=== PATIENT | male | born 1935 | race Asian ===

== ENCOUNTER 2018-07-31 08:15 | Inpatient (IN) | payer MEDICARE, OTHER ==
[~2018-07-31] VITALS: Ht 180.3 cm; Wt 59.4 kg
[~2018-07-31 08:15] MED LIST: CARB1TAB8 PO; CIPR500T9 PO; FINA5TAB5 PO
[2018-07-31 08:26] VITALS: BP 97/57
--- NOTE | 2018-07-31 08:32 | NUR ---
pt taken in wheelchair to er bed 06
--- NOTE | 2018-07-31 08:47 | NUR ---
C/O SWOLLEN SCROTUM X 10 DAYS, SAW PCP LAST HAN WAS PRESCRIBED CIPRO. SWELLING HAS WORSENED. PAIN DESCRIBED MILD. PT SPEAKS CANTONESE, SON IS WITH PATIENT. FEVER 10 DAYS AGO AT HOME. HX: PARKINSONS, CONSTIPATION, ECZEMA RX: COLACE, HYDROCORTISONE, LACTULOSE, COMPAZINE, EYE DROPS
[2018-07-31] MEDS ORDERED: NACL 0.9% 1,000 ML IV SCH (09:10)
[2018-07-31] MEDS ORDERED: KETOROLAC 15 MG/ML VIAL IVP ONE (09:20)
[2018-07-31] MEDS ORDERED: metroNIDAZOLE 500 MG/NS PREMIX 100 ML IV ONE ×2 (09:20→12:35)
[2018-07-31] MEDS ORDERED: VANCOMYCIN PER PHARMACY MC PRN ×2 (09:20→12:35)
[2018-07-31] MEDS ORDERED: VANCOMYCIN 1GM/DEXT 5% PREMIX 200 ML IV ONE (09:20)
--- NOTE | 2018-07-31 09:30 | NUR ---
ATTEMPTED KUHN CATH PLACEMENT. UNABLE TO ADVANCE OR INFLATE BALOON. MILD BLEEDING NOTED. WITH SPEAK WITH DOCTOR ON HOW HE WOULD LIKE TO PROCEED.
--- NOTE | 2018-07-31 09:45 | NUR ---
DR GUPTA STATED TO HOLD KUHN PLACEMENT AT THIS TIME.
[2018-07-31 09:46] LABS: BASOPHILS % (AUTO) 0.5 % (0.0-2.0); EOSINOPHILS # (AUTO) 0.1 K/uL (0-0.4); EOSINOPHILS % (AUTO) 0.6 % (0.0-4.0); HEMATOCRIT 29.4 % (36-52); HEMOGLOBIN 9.5 g/dL (12.0-18.0); LYMPHOCYTES # (AUTO) 0.5 K/uL (2.0-11.5); LYMPHOCYTES % (AUTO) 5.9 % (20.5-51.1); MEAN CORPUSCULAR HEMOGLOBIN 27 pg (27-31); MEAN CORPUSCULAR HGB CONC 32 g/dL (33-37); MEAN CORPUSCULAR VOLUME 82.1 fL (80-94); MONOCYTES # (AUTO) 1.3 K/uL (0.8-1.0); MONOCYTES % (AUTO) 14.5 % (1.7-9.3); NEUTROPHILS # (AUTO) 7.1 K/uL (1.8-7.7); NEUTROPHILS % (AUTO) 78.5 % (42.2-75.2); PLATELET COUNT (AUTO) 226 K/uL (140-450); RED BLOOD CELL COUNT(AUTO) 3.59 MIL/uL (4.20-6.10); RED CELL DISTRIBUTION WIDTH 15.1 % (11.6-13.7)
--- NOTE | 2018-07-31 09:47 | NUR ---
Note undone in EDM - 07/31/18 at 1031 by YESIKA C/O SWOLLEN SCROTUM X 10 DAYS, SAW PCP LAST TUESDAY WAS PRESCRIBED CIPRO. SWELLING HAS WORSENED. PAIN DESCRIBED MILD. PT SPEAKS CANTONESE, SON IS WITH PATIENT. FEVER 10 DAYS AGO AT HOME. HX: PARKINSONS, CONSTIPATION, ECZEMA RX: COLACE, HYDROCORTISONE, LACTULOSE, COMPAZINE, EYE DROPS
[2018-07-31 10:04] LABS: ALBUMIN 2.4 g/dL (3.4-5.0); ANION GAP 6.5 (8-16); ASPARTATE AMINOTRANSFERASE 23 U/L (15-37); CARBON DIOXIDE 29.4 mmol/L (21-32); CHLORIDE 99 mmol/L (98-107); CREATININE 1.1 mg/dL (0.7-1.3); GLUCOSE 125 mg/dL (74-106); POTASSIUM 3.9 mmol/L (3.5-5.1); SODIUM SERUM 131 mmol/L (136-145); TOTAL BILIRUBIN 0.4 mg/dL (0.0-1.0); UREA NITROGEN, BLOOD 18 mg/dL (7-18)
[2018-07-31 10:08] LABS: PROTHROMBIN TIME 12.6 secs (10.8-13.4)
[2018-07-31] MEDS ORDERED: VANCOMYCIN 1,000 MG in DEXTROSE 5% 250 ML IV ONE (10:55)
[2018-07-31] MEDS ORDERED: VANCOMYCIN 1,000 MG VIAL ONE (11:35)
[2018-07-31] MEDS ORDERED: MORPHINE SULFATE 2 MG/ML SYR IVP PRN (12:30)
[2018-07-31] MEDS ORDERED: ONDANSETRON 4 MG/2 ML VIAL IM/IVP PRN (12:30)
[2018-07-31] MEDS ORDERED: DOCUSATE SODIUM 100 MG GELCAP PO PRN (12:30)
[2018-07-31] MEDS ORDERED: HYDROcodone/APAP 5/325 MG 1 TAB TAB PO PRN (12:30)
[2018-07-31] MEDS ORDERED: TAMSULOSIN 0.4 MG CAP PO SCH (13:54)
--- NOTE | 2018-07-31 13:55 | NUR ---
PATIENT ADMITTED TO [facility], UNDER CARE OF DR POON. REPORT GIVEN TO RN FOR CONTINUATION OF CARE. PATIENT STABLE DURING TRANSFER.
[2018-07-31 14:15] LABS: FREE T4 (FREE THYROXINE) 1.31 ng/dL (0.76-1.46); MAGNESIUM 2.1 mg/dL (1.8-2.4); PHOSPHORUS 3.8 mg/dL (2.5-4.9); THYROID STIMULATING HORMONE 2.31 uIU/mL (0.34-3.74)
--- NOTE | 2018-07-31 14:30 | NUR ---
DR. VALERA AT BEDSIDE REVIEWING PLAN OF CARE WITH PATIENT/SON AT BEDSIDE. BLADDER SCANNED PERFORMED, 380 ML RESIDUAL NOTED. BED SWALLOW EVALUATION PERFORMED. ABLE TO SWALLOW APPLE SAUCE, NORMAL WATER WITH SPOON ONLY, AND ICE CHIPS WHOLE ONLY WHEN HIGH HARPER'S POSITION. SON SAID PATIENT TOLERATED PUREED DIET AT HOME AND IS ABLE TO SWALLOW WHOLE PILLS WITHOUT CRUSHING. NOTIFIED DR. VALERA. SAFETY MEASURES IN PLACE, CALL LIGHT WITHIN REACH. WILL CONTINUE TO MONITOR.
[2018-07-31] MEDS ORDERED: GLYCOPYRROLATE 1 MG TAB PO PRN (14:50)
[2018-07-31] MEDS ORDERED: FINASTERIDE 5 MG TAB PO SCH (14:50)
[2018-07-31] MEDS ORDERED: traZODone 50 MG TAB PO PRN (14:50)
[2018-07-31] MEDS ORDERED: COMPOSITE DRESSING TP PRN (15:05)
[2018-07-31] MEDS ORDERED: LACTULOSE 20 GM/30 ML UDC PO SCH (15:05)
[2018-07-31] MEDS ORDERED: Z-GUARD PASTE TP PRN (15:05)
[2018-07-31] MEDS: NACL 0.9% 1,000 ML IV SCH (15:13)
--- NOTE | 2018-07-31 15:16 | NUR ---
SCHEDULED MEDICATIONS DUE GIVEN VIA PO. IVF STARTED PER MD ORDERS. WILL CONTINUE TO MONITOR.
[2018-07-31] MEDS ORDERED: PANTOPRAZOLE 40 MG INJ VIAL IVP SCH (16:00)
[2018-07-31] MEDS ORDERED: COMPOSITE DRESSING TP SCH (16:30)
[2018-07-31] MEDS: Z-GUARD PASTE TP SCH (16:30)
[2018-07-31] MEDS: GABAPENTIN 300 MG CAP PO SCH (17:00)
[2018-07-31] MEDS: CARBIDOPA/LEVODOPA 25/100 MG 1 TAB PO SCH (17:00)
--- NOTE | 2018-07-31 19:41 | NUR ---
RECEIVED PATIENT FROM AM BERNARD BRITT. PATIENT A/Ox2, UNABLE TO MAKE NEEDS KNOWN. NO SOB OR DISTRESS NOTED. PATIENT ON REGULAR PUREED DIET, CAN EITHER SWALLOW PILLS WHOLE OR CRUSHED. ORIENTED SELF TO PATIENT, BOARD UPDATED. IV SITE NOTED ON LEFT FOREARM, INTACT AND NO S/SX OF SWELLING, REDNESS, INFECTION NOTED. SKIN NON-INTACT, PATIENT NOTED WITH PRESSURE SORE ON SACRAL-COCCYX AREA. CONDOM CATH IN PLACE. INITIAL ASSESSMENT DONE, ALL SAFETY PRECAUTIONS IN PLACE. BED IN THE LOWEST POSITION. CALL LIGHT WITHIN REACH. WILL CONTINUE TO MONITOR.
--- NOTE | 2018-07-31 20:10 | NUR ---
TOOK PATIENT VITALS, BP TRENDING LOW, 104/41. WILL CONTINUE TO MONITOR. NO SOB OR DISTRESS NOTED.
[2018-07-31] MEDS: metroNIDAZOLE 500 MG/NS PREMIX 100 ML IV SCH (21:30)
[2018-08-01] VITALS (7 sets, daily range): BP systolic 78–107; BP diastolic 39–56
--- NOTE | 2018-08-01 00:08 | NUR ---
PATIENTS BP TRENDING LOW, BP 102/38. MADE DR. TORIBIO AWARE, NO NEW ORDERS. WILL CONTINUE TO MONITOR.
[2018-08-01] MEDS: Z-GUARD PASTE TP SCH ×2 (02:24→13:00)
--- NOTE | 2018-08-01 04:41 | NUR ---
RADIOLOGY TOOK PATIENT OUT OF THE UNIT FOR CT SCAN ABDOMEN/PELVIS WITH CONTRAST.
--- NOTE | 2018-08-01 05:10 | NUR ---
PATIENT RETURNED FROM CT SCAN, NOTICED A 2CM TEAR ON LEFT UPPER FOREHEAD. PICTURE TAKEN.
[2018-08-01] MEDS: NACL 0.9% 1,000 ML IV SCH ×2 (05:45→18:00)
[2018-08-01] MEDS: metroNIDAZOLE 500 MG/NS PREMIX 100 ML IV SCH ×3 (05:46→20:13)
[2018-08-01] MEDS ORDERED: NACL 0.9% 500 ML IV SCH ×3 (06:45→13:07)
--- NOTE | 2018-08-01 06:45 | NUR ---
DR. VALERA WENT TO ASSESS THE PATIENT. PATIENT NOTED WITH TRENDING LOW BP, MAP 50'S TO 60'S. DR. VALERA ORDERED 500mL BOLUS, NS INCREASED TO 80mL/HR.
[2018-08-01 07:00] LABS: BASOPHILS % (AUTO) 0.2 % (0.0-2.0); EOSINOPHILS % (AUTO) 0.2 % (0.0-4.0); HEMATOCRIT 27.3 % (36-52); HEMOGLOBIN 8.8 g/dL (12.0-18.0); LYMPHOCYTES # (AUTO) 0.4 K/uL (2.0-11.5); LYMPHOCYTES % (AUTO) 4.6 % (20.5-51.1); MEAN CORPUSCULAR HEMOGLOBIN 27 pg (27-31); MEAN CORPUSCULAR HGB CONC 32 g/dL (33-37); MEAN CORPUSCULAR VOLUME 82.4 fL (80-94); MONOCYTES # (AUTO) 0.9 K/uL (0.8-1.0); MONOCYTES % (AUTO) 10.8 % (1.7-9.3); NEUTROPHILS # (AUTO) 6.8 K/uL (1.8-7.7); NEUTROPHILS % (AUTO) 84.2 % (42.2-75.2); PLATELET COUNT (AUTO) 193 K/uL (140-450); RED BLOOD CELL COUNT(AUTO) 3.31 MIL/uL (4.20-6.10); RED CELL DISTRIBUTION WIDTH 15.5 % (11.6-13.7)
[2018-08-01 07:21] LABS: ANION GAP 8.8 (8-16); CARBON DIOXIDE 26.2 mmol/L (21-32); CHLORIDE 103 mmol/L (98-107); CREATININE 1.3 mg/dL (0.7-1.3); GLUCOSE 101 mg/dL (74-106); SODIUM SERUM 134 mmol/L (136-145); UREA NITROGEN, BLOOD 21 mg/dL (7-18)
[2018-08-01 07:27] LABS: MAGNESIUM 2.1 mg/dL (1.8-2.4)
[2018-08-01 07:28] LABS: CHOL/HDL RATIO 2.9 (1-4.5)
--- NOTE | 2018-08-01 07:30 | NUR ---
ENDORSED PATIENT TO AM RN. MADE AWARE BP TRENDING LOW, OCCULT BLOOD AND URINE SAMPLE DUE.
--- NOTE | 2018-08-01 07:32 | NUR ---
RECEIVED BEDSIDE REPORT FROM IMPROVEMENT ADVISOR NURSE. PT AOX2, ABLE TO MAKE NEED NOTED. BEDBOUND. COUGH A FEW TIMES. 2CM CUT NOTED ON FOREHEAD, APPLIED BANDAGE. IV ON L FA, INFUSING NS 500ML/ HR PER MD ORDER. IV SITE DRY AND CLEAN. SCROTAL IS RED, SWELLING, AND APPLIED CONDOM CATHETER PER MD ORDER, DRAIN WELL AND PATENT. DISCUSSED PLAN OF CARE WITH PATIENT, PATIENT VERBALIZED UNDERSTANDING. INSTRUCTED PATIENT ON USING THE CALL LIGHT FOR ANY ASSISTANCE. SAFETY MEASURES IN PLACE. BED IN LOW POSITION, CALL LIGHT WITHIN REACH.
--- NOTE | 2018-08-01 07:57 | NUR ---
PATIENT HAS BEEN SCREENED AND CATEGORIZED HIGH NUTRITION RISK. PATIENT WILL BE SEEN WITHIN 1-2 DAYS OF ADMISSION. 08/01/18-08/02/[address]
--- NOTE | 2018-08-01 08:33 | NUR ---
HANG 500ML/HR NS BOLUS PER MD ORDER.
[2018-08-01] MEDS ORDERED: LACTULOSE 20 GM/30 ML UDC PO SCH (09:00)
[2018-08-01] MEDS ORDERED: FAMOTIDINE 20 MG TAB PO SCH (09:00)
[2018-08-01] MEDS: LACTOBACILLUS RHAMNOSUS GG 1 EACH CAP PO SCH (09:08)
[2018-08-01] MEDS: PANTOPRAZOLE 40 MG INJ VIAL IVP SCH (09:08)
[2018-08-01] MEDS: GABAPENTIN 300 MG CAP PO SCH ×3 (09:09→17:14)
[2018-08-01] MEDS: FINASTERIDE 5 MG TAB PO SCH (09:09)
[2018-08-01] MEDS: CARBIDOPA/LEVODOPA 25/100 MG 1 TAB PO SCH ×3 (09:10→17:15)
[2018-08-01] MEDS: TAMSULOSIN 0.4 MG CAP PO SCH (09:10)
[2018-08-01] MEDS ORDERED: SODIUM PHOSPHATE 118 ML ENEM RC PRN (09:25)
[2018-08-01] MEDS ORDERED: MINERAL OIL 135 ML ENEM RC SCH (09:27)
--- NOTE | 2018-08-01 09:45 | NUR ---
NOTIFIED DR VALERA ON REGARDS PT'S VITAL SIGNS. DR VALERA CAME TO BEDSIDE AND ASSESSED PT. INCREASED NS TO 100ML/HR ORDERED BY DR VALERA. WILL PUT IN AN ORDER FOR X-RAY. APPLIED COOLING MEASURES. WILL CONTINUE TO MONITOR PT'S VITAL SIGNS.
--- NOTE | 2018-08-01 10:15 | NUR ---
ASSISTED SUPERINTENDENT DIVISION TO CHANGE AND PROVIDED ORAL HYGIENE TO PATIENT. FAMILY IS AT BEDSIDE.
--- NOTE | 2018-08-01 10:16 | NUR ---
ABG REPORTED TO DR VALERA 2L N/C PLACED SPO2 94
--- NOTE | 2018-08-01 10:33 | NUR ---
WITH PT'S SON GLENDA'S PERMISSION, PROVIDED COPIES OF PT'S H&P AND FACE SHEET TO JIMENA FROM [facility].
[2018-08-01] MEDS: VANCOMYCIN 1GM/DEXT 5% PREMIX 200 ML IV SCH (10:51)
--- NOTE | 2018-08-01 11:55 | NUR ---
08/01/18 RD INITIAL ASSESSMENT COMPLETED PLEASE REFER TO NUTRITION ASSESSMENT UNDER CARE ACTIVITY FOR ESTIMATED NUTRITIONAL NEEDS. 1. CONTINUE PUREE DIET TOLERATED 2. RECOMMEND VITAMIN C 200 MG BID 3. RECOMMEND PROSOURCE BID WITH LUNCH AND DINNER (NOT TAKEN AT THE SAME TIME WITH PARKINSON�S MEDICATION) 4. RD PROVIDED PT�S FAMILY NUTRITION EDUCATION ON HIGH CALORIE AND PROTEIN TIPS 5. RD TO FOLLOW-UP 2-3 DAYS, HIGH RISK YOGI PRYOR RD
--- NOTE | 2018-08-01 12:12 | NUR ---
ADMINISTERED MED PER MED ORDER. PT'S SON BASIM IS AT BEDSIDE.
[2018-08-01] MEDS: COMPOSITE DRESSING TP SCH (13:00)
--- NOTE | 2018-08-01 13:01 | NUR ---
S.T. BEDSIDE SWALLOW EVAL COMPLETED Please see report for details. Pt presents with moderate oropharyngeal dysphagia c/b labial leakage of all textures, delayed pharyngeal swallow response and reported coughing after sawllows of thin liquid. Pt demo'd improved swallow function with purees and nectar thick liquids by spoon only. Recommend: 1) Continue pureed diet, downgrade liquid texture to NECTAR THICK LIQUIDS ONLY, BY SPOON ONLY. 2) P.O. meds crushed 3) 1:1 feeder w/ strict aspiration precautions. D/w results and recommendations with son at bedside as well as BERNARD Mckinney. No further tx indicated at this time. DC to [facility]. Time [id number]
--- NOTE | 2018-08-01 13:30 | NUR ---
20 ML TEA COLOR URINE WAS COLLECTED FROM CONDOM CATHETER. NOTICED BLADDER DISTENTION. BLADDER SCAN PERFORMED AT BEDSIDE, 632 ML URINE WAS SCANNED AT THIS TIME. DR VALERA AT BEDSIDE AND AWARED.
--- NOTE | 2018-08-01 13:40 | NUR ---
STARTED INFUSING NS [address] VALERA'S ORDER.
--- NOTE | 2018-08-01 13:45 | NUR ---
Spoke to Zbigniew Cortes (son) re: physician order for central venous cath insertion. Per talya Coy to insert CV cath. Confirmed with 2 nurse verification.
--- NOTE | 2018-08-01 14:00 | NUR ---
INSERTED 16 FR INDWELLING COUDE URINARY CATHETER AND DRAINED 600 ML TEA COLOR URINE. BLADDER DISTENTION RESOLVED.
--- NOTE | 2018-08-01 14:10 | NUR ---
DR VALERA IS AT BEDSIDE AND WAITING FOR U/S TO ARRIVAL TO INSERT A CENTRAL LINE.
[2018-08-01] MEDS: LACTULOSE 20 GM/30 ML UDC PO SCH ×2 (14:35→17:14)
[2018-08-01 14:43] LABS: APPEARANCE,URINE CLOUDY (CLEAR); BILIRUBIN,URINE 2+ (NEGATIVE); BLOOD, URINE 3+ (NEGATIVE); COLOR,URINE BROWN (YELLOW); LEUKOCYTE ESTERASE ,URINE 2+ (NEGATIVE); NITRITE, URINE POSITIVE (NEGATIVE); PH,URINE 6.5 (5.0-9.0); UGLUCOSE NEGATIVE (NEGATIVE)
[2018-08-01 14:59] LABS: RBC,URINE 50-80 /HPF (0-5); WBC,URINE TOO MANY TO COUNT /HPF (0-5)
[2018-08-01] MEDS ORDERED: NOREPINEPHRINE 16 MG in DEXTROSE 5% 250 ML IV PRN (15:45)
--- NOTE | 2018-08-01 15:55 | NUR ---
RECEIVED PT FROM TELE VIA BED. PLACED PT ON MONITOR HR 74, BP 101/62 SPO2 99%. ON O2 AT 2 LTR/MIN VIA NC. PUPILS REACTIVE TO LIGHT. SKIN DRY AND WARM TO TOUCH. LACERATION NOTED ON LEFT FOREHEAD. BAND AID IN PLACE. NO BLEEDING FROM THE SITE. PT A/O X1. UNABLE TO MAKE NEEDS KNOWN. COUGHING. LUNGS WHEEZING. ABDOMEN SOFT ROUND AND NON-TENDER. ACTIVE BOWEL SOUND. LFA 20G. INTACT. NS INFUSING AT 100 ML/HR. RIJ TRIPLE LUMEN NOTED. INTACT DRESSING. MULTIPLE ECCHYMOSIS NOTED ON BUA. SMALL DRY PATCHES NOTED ON BLE. PRESSURE ULCERS NOTED ON SACRO-COCCYX, AND LEFT BUTTOCK, COVERED WITH DRESSING. DRESSING INTACT. BLANCHABLE REDNESS NOTED ON BUTTOCKS, UPPER BACK AND BLE. KEPT HOB ELEVATED. BED IN LOW POSITION LOCKED. CALL LIGHT WITHIN REACH. WILL CONTINUE TO MONITOR.
--- NOTE | 2018-08-01 16:00 | NUR ---
TRANSFER PATIENT TO ICU 5. BEDSIDE REPORT GIVEN TO ICU NURSE NAEEM. PATIENT IS LETHARGIC, RESPONDED TO VOICE AND NAME.
--- NOTE | 2018-08-01 16:00 | NUR ---
RECEIVED REPORT FROM TELE NURSE KELLEN.
--- NOTE | 2018-08-01 16:27 | NUR ---
Seen by Dr. Vincent. Updated pt. condition.
--- NOTE | 2018-08-01 16:31 | NUR ---
X-ray at the bedside at this time.
--- NOTE | 2018-08-01 17:07 | NUR ---
SPOKE TO DR. VALERA. MADE AWARE ABOUT NOT STARTING LEVOPHED BECAUSE PT'S BP READ WAS 101/62 ON ARRIVAL IN ICU AND IS 125/78 AT THIS TIME. SAID OK.
--- NOTE | 2018-08-01 17:37 | NUR ---
PT ABLE TO FOLLOW SIMPLE COMMANDS. ASSISTED TO FEED. FEEDING TOLERATED. HOB ELEVATED. INFUSING NS AT 80 ML/HR PER ORDER. BP 114/63 AT THIS TIME.
--- NOTE | 2018-08-01 18:25 | NUR ---
PT CLEANED. REPOSITIONED. NO CHANGE IN LOC. WS WNL.
--- NOTE | 2018-08-01 18:40 | NUR ---
SEEN BY DR. GLOVER. UPDATE PT CONDITION.
--- NOTE | 2018-08-01 19:15 | NUR ---
RECEIVED REPORT FROM AM SHIFT. PT AO X 2. WELSH SPEAKING. UNABLE TO FOLLOW COMMANDS. ON 2LPM NC. LUNG SOUND CLEAR BILAT. COUGH INTERMITTENTLY NONPRODUCTIVE. PUREE DIET. BM PRESENT. LOOSE LARGE BM. F/C IN PLACE. TEA COLORED URINE NOTED. BLEEDING AT THE URETHRA NOTED. RIJ CENTRAL LINE IN PLACE. L FA 20G NOTED. WOUND TO L BUTTOCK AND L FOREHEAD LACERATION NOTED. FAMILY AT BEDSIDE. BED IN LOWEST POSITION. SR UP X4. WILL CONTINUE TO MONITOR.
--- NOTE | 2018-08-01 19:21 | NUR ---
PT ABLE TO FOLLOW SIMPLE COMMANDS AND VERBALIZE NEEDS WITH FAMILY AT BEDSIDE
--- NOTE | 2018-08-01 19:31 | NUR ---
REPORT GIVEN TO FINISH OFF OPERATOR RN FOR CONTINUITY OF CARE.
--- NOTE | 2018-08-01 19:45 | NUR ---
FAMILY AT BEDSIDE AT THIS TIME.
--- NOTE | 2018-08-01 20:10 | NUR ---
PT HAD BM AT THIS TIME. PT CLEANED AT REPOSITIONED. NO SIGNS OF ACUTE DISTRESS NOTED.
[2018-08-01] MEDS: ASCORBIC ACID 500 MG/5 ML ORASYR PO SCH (20:13)
[2018-08-01] MEDS: POLYETHYLENE GLYCOL 17 GM/PKT PO SCH (20:13)
[2018-08-02] VITALS (10 sets, daily range): BP systolic 91–128; BP diastolic 46–62
[2018-08-02] MEDS: NACL 0.9% 1,000 ML IV SCH ×2 (00:40→16:22)
--- NOTE | 2018-08-02 00:41 | NUR ---
PT REPOSITIONED AT THIS TIME. NO SIGNS OF ACUTE DISTRESS NOTED. BP 93/45 AT THIS TIME.
--- NOTE | 2018-08-02 01:03 | NUR ---
PT HAD MODERATE SIZED BM AT THIS TIME. STOOL LOOSE BROWN NOTED.
[2018-08-02] MEDS: Z-GUARD PASTE TP SCH ×2 (01:09→12:20)
--- NOTE | 2018-08-02 02:42 | NUR ---
PT REPOSITIONED AND CLEANED AT THIS TIME. HAD MODERATE SIZED LOOSE BM.
[2018-08-02] MEDS: metroNIDAZOLE 500 MG/NS PREMIX 100 ML IV SCH ×3 (04:08→20:44)
--- NOTE | 2018-08-02 04:16 | NUR ---
PT REPOSITIONED AT THIS TIME. NO SIGNS OF ACUTE DISTRESS NOTED. BP 92/56 NOTED. AM CARE PROVIDED AT THIS TIME
--- NOTE | 2018-08-02 04:45 | NUR ---
PT HAD LARGE BM AT THIS TIME. NEW DRESSING APPLIED TO L BUTTOCK AND ZGUARD TO ALEXANDRE AREA.
--- NOTE | 2018-08-02 05:05 | NUR ---
WITHDREW BLOOD VIA CENTRAL LINE FOR AM BLOOD DRAWS. ASEPTIC TECHNIQUE OBSERVED. NO SIGNS OF ACUTE DISTRESS NOTED.
[2018-08-02 06:01] LABS: BASOPHILS % (AUTO) 0.4 % (0.0-2.0); EOSINOPHILS % (AUTO) 0.5 % (0.0-4.0); HEMATOCRIT 23.9 % (36-52); LYMPHOCYTES # (AUTO) 0.9 K/uL (2.0-11.5); LYMPHOCYTES % (AUTO) 13.4 % (20.5-51.1); MEAN CORPUSCULAR HEMOGLOBIN 27 pg (27-31); MEAN CORPUSCULAR HGB CONC 32 g/dL (33-37); MEAN CORPUSCULAR VOLUME 83.2 fL (80-94); MONOCYTES # (AUTO) 1.2 K/uL (0.8-1.0); NEUTROPHILS # (AUTO) 4.6 K/uL (1.8-7.7); NEUTROPHILS % (AUTO) 67.7 % (42.2-75.2); PLATELET COUNT (AUTO) 161 K/uL (140-450); RED BLOOD CELL COUNT(AUTO) 2.87 MIL/uL (4.20-6.10); RED CELL DISTRIBUTION WIDTH 15.5 % (11.6-13.7); WHITE BLOOD COUNT (AUTO) 6.8 K/uL (4.8-10.8)
[2018-08-02 06:02] LABS: GLUCOSE 99 mg/dL (74-106); UREA NITROGEN, BLOOD 20 mg/dL (7-18)
[2018-08-02 06:06] LABS: MAGNESIUM 2.2 mg/dL (1.8-2.4); PHOSPHORUS 3.6 mg/dL (2.5-4.9)
[2018-08-02 06:16] LABS: CARBON DIOXIDE 24.8 mmol/L (21-32); CHLORIDE 112 mmol/L (98-107); POTASSIUM 3.8 mmol/L (3.5-5.1); SODIUM SERUM 140 mmol/L (136-145)
[2018-08-02 06:38] LABS: HEMOGLOBIN 7.7 g/dL (12.0-18.0)
--- NOTE | 2018-08-02 07:18 | NUR ---
ENDORSED CARE TO INCOMING SHIFT FOR CONTINUITY OF CARE. NO SIGNS OF ACUTE DISTRESS AT THIS TIME. BED IN LOWEST POSITION. SR UP X4.
[2018-08-02] MEDS ORDERED: PROBIOTIC SCREEN 1 EA MISC MC PRN (08:00)
--- NOTE | 2018-08-02 08:00 | NUR ---
PATIENT OPENS EYES TO VOICE, OBEYS SIMPLE COMMANDS OPEN YOUR MOUTH BUT FATIGUED, BEING ASSISTED WITH BREAKFAST, ABLE TO TOLERATE DIET WITH ASPIRATION PRECAUTION. ON NASAL CANNULA O2 2L/MIN SO2 97%, WITH COUGH NOTED AND UNABLE TO FULLY EXPECTORATE SECRETIONS, RN SUCTIONED ORALLY CREAMY SECRETIONS THROUGH THE MOUTH, SINUS RHYTHM ON MONITOR HEART RATE 70BPM, NON PITTING EDEMA IN THE SCROTUM AND BILATERAL LOWER EXTREMITIES, KUHN CATHETER, DARK CHANTAL OOZING FROM GENITAL AREA SAME REPORTED BY NIGHT RN, SOFT ABDOMEN, WITH TRIPLE LUMEN CENTRAL LINE RIGHT INTERNAL JUGULAR-NORMAL SALINE 80 CC/HR. INFUSING, PERIPHERAL LINE GAUGE 20 AT LEFT FOREARM SALINE LOCKED-SITES ASYMPTOMATIC, OPEN WOUND BETWEEN SACRUM AND LEFT GLUTEAL, SMALL ABRASION AT LEFT FOREHEAD-BOTH DRESSINGS CLEAN DRY INTACT, SMALL BLUISH DISCOLORATIONS BOTH FOREARMS
--- NOTE | 2018-08-02 08:01 | NUR ---
DARK CHANTAL URINE, AND MINIMAL SAME OOZING AROUND GENITAL PHYSICIAN MADE AWARE BY NIGHT RN NYLA PER REPORT
[2018-08-02] MEDS: CARBIDOPA/LEVODOPA 25/100 MG 1 TAB PO SCH ×3 (08:25→16:21)
[2018-08-02] MEDS: PANTOPRAZOLE 40 MG INJ VIAL IVP SCH (08:28)
[2018-08-02] MEDS: LACTOBACILLUS RHAMNOSUS GG 1 EACH CAP PO SCH (08:29)
[2018-08-02] MEDS: TAMSULOSIN 0.4 MG CAP PO SCH (08:29)
[2018-08-02] MEDS: ASCORBIC ACID 500 MG/5 ML ORASYR PO SCH (08:30)
[2018-08-02] MEDS: GABAPENTIN 300 MG CAP PO SCH ×3 (08:30→16:21)
[2018-08-02] MEDS: POLYETHYLENE GLYCOL 17 GM/PKT PO SCH ×2 (08:30→20:44)
[2018-08-02] MEDS ORDERED: SODIUM FERRIC GLUCONATE 125 MG in NACL 0.9% 100 ML IV SCH (09:00)
--- NOTE | 2018-08-02 09:15 | NUR ---
PATIENT HAD BM BROWN SOFT MINIMAL AMOUNT, CLEANED PATIENT, NO NEW SKIN ISSUES. REPOSITIONED PATIENT ROUTINE
--- NOTE | 2018-08-02 09:31 | NUR ---
JUST RECEIVED FERRITIN, FINASTERIDE STOCK FROM PHARMACY,
[2018-08-02] MEDS: LACTULOSE 20 GM/30 ML UDC PO SCH ×3 (09:32→16:21)
[2018-08-02] MEDS: FINASTERIDE 5 MG TAB PO SCH (09:33)
[2018-08-02 09:52] LABS: FOLIC ACID 2.8 ng/mL (>3.0)
--- NOTE | 2018-08-02 10:00 | NUR ---
DR. VALERA AWARE OF TODAY'S LABORATORY RESULTS HGB 7.7
[2018-08-02] MEDS ORDERED: ALBUTEROL SULFATE/IPRATROPIU 3 ML SOL IH PRN (10:35)
--- NOTE | 2018-08-02 11:02 | NUR ---
AWAITING VANCOMYCIN TROUGH LEVEL RESULT
--- NOTE | 2018-08-02 11:30 | NUR ---
WOUND CARE EVALUATION NOTE: REASON FOR EVALUATION: SCROTAL AND BUTTOCK WOUNDS SKIN ASSESSMENT DONE WITH 83 Y/O MALE PT ADMITTED FROM HOME TO [facility] WITH INITIAL DX OF SWOLLEN SCROTUM. PAST MEDICAL HX INCLUDES PARKINSON, GERD AND NEUROPATHY. ALL ABOVE INFORMATION OBTAINED FROM ADMISSION H&P. LABS ARE WBC 6.8, H/H 2.7/23.9, GLUCOSE 99 AND ALBUMIN 2.4. PT IS AWAKE. SKIN IS WARM AND DRY, MULTIPLE ECCHYMOSIS TO UPPER ARMS AND FINGERS, BLE DRY SCALY SKIN, NO HAIR GROWTH, FEET WITH MULTIPLE DISCOLORATION POSSIBLE FROM POOR CIRCULATION, BILATERAL DORSAL PEDAL PULSES PRESENT AND NORMAL. CAPILLARY REFILLED < 2 SEC. X 10 TOES[address] F/C IN PLACE, INCONTINENT OF BM X1 DURING ASSESSMENT. PLAN OF CARE DISCUSSED WITH PRIMARY RN. CLARIFICATION: SACRALCOCCYX NO OPEN WOUND, SKIN DRY, CLEAN AND INTACT. INTEGUMENTARY: -LEFT FOREHEAD SKIN TEAR LINER SHAPE 1CM IN LENGTH, AREA IS DRY -MULTIPLE ECCHYMOSIS TO RIGHT UPPER ARM WITH LARGEST SIZE 3X3 CM CLOSE TO LEFT FORE ARM AREA -SCROTAL ULCERATION MULTIPLE PARTIAL THICKNESS LOSS OF SKIN WITH MID ANTERIOR 1X1X0.2 CM SMALL AMOUNT OF PURULENT DRAINAGE, NO ODOR, ALEXANDRE-WOUND SKIN DENUDED AND LEFT SIDE OF SCROTUM WITH 2X4X0.1 CM WOUND BED IS RED AND MOIST, NO ODOR. PERIWOUND SKIN MOIST. SCROTAL EDEMA. -INCONTINENT ASSOCIATE DERMATITIS (IAD) TO: REDNESS R/L GROINS EXTENDED TO PERIANAL -PRESSURE INJURY STAGE 2 TO LEFT BUTTOCK 1X1X0.5CM, WOUND BED IS RED AND MOIST , PERIWOUND SKIN INTACT,NO ODOR -BLANCHABLE REDNESS TO RIGHT HEEL RECOMMENDATIONS: -CLEANSE LEFT FOREHEAD, LEFT BUTTOCK AND SCROTAL WOUNDS WITH WOUND CARE SOLUTION, PAT DRY, APPLY HYDROGEL AND COVER WITH COMPOSITE DRESSING QD AND PRN IF SOILING. -PLEASE CRADLE SCROTAL AREA WITH DRY WASH CLOTH -APPLY Z-GUARD TO: R/L GROINS EXTENDED TO PERIANAL BIDWC AND PRN IF SOILING -APPLY HEEL RAISER TO RIGHT HEEL AT ALL TIMES -OFFLOAD BILATERAL HEELS BY PLACING PILLOWS UNDER CALVES UNLESS OTHERWISE CONTRAINDICATED -PRESSURE REDISTRIBUTION SURFACE THERAPY -TURN AND REPOSITION Q2H, OFFLOAD SACRALCOCCYX AND LEFT BUTTOCK -CONTINUE TO FOLLOW RD RECOMMENDATIONS ALL ABOVE RECOMMENDATIONS DISCUSSED WITH PRIMARY RN WILL FOLLOW UP PT Q7-10 DAYS. PLEASE CONTACT WOUND CARE NURSE FOR ANY QUESTION AND CHANGE OF WOUND CONDITION.
--- NOTE | 2018-08-02 11:35 | NUR ---
FOLLOWED UP PHARMACY STAFF DONNA THERE IS NO STOCK FOR VANCOMYCIN UNTIL NOW
[2018-08-02] MEDS: VANCOMYCIN 1GM/DEXT 5% PREMIX 200 ML IV SCH (11:41)
--- NOTE | 2018-08-02 11:45 | NUR ---
TIME CLOCK INSPECTOR AT BEDSIDE FOR ECHO
[2018-08-02] MEDS ORDERED: HYDRAGUARD CREAM TP PRN (11:55)
[2018-08-02] MEDS: COMPOSITE DRESSING TP SCH (12:20)
--- NOTE | 2018-08-02 12:40 | NUR ---
FAMILY AT BEDSIDE. RN AND FAMILY ASSISTED PATIENT WITH MEALS. HEAD OF BED UP 90 DEGREES AT THIS TIME
[2018-08-02] MEDS: ALBUTEROL SULFATE/IPRATROPIU 3 ML SOL IH SCH ×2 (13:07→19:39)
--- NOTE | 2018-08-02 13:28 | NUR ---
PT WITH POOR EFFORT ON IS BASICALLY UNABLE TO DO RN AWARE
[2018-08-02] MEDS: HYDRAGUARD CREAM TP SCH (14:00)
--- NOTE | 2018-08-02 16:45 | NUR ---
PM CARE DONE. PATIENT HAD BM BROWN SOFT MODERATE AMOUNT, CLEANED PATIENT, SPONGE BATH, CATHETER CARE AND GOWN AND LINEN CHANGED. PATIENT TOLERATED THE PROCEDURE
--- NOTE | 2018-08-02 17:30 | NUR ---
PATIENT IN TELEMETRY UNIT VIA WOUND BED, HOOKED TO TELEMETRY BOX. LINES PATENT IN SITU DATED, BEDSIDE REPORT GIVEN TO BERNARD GARNETT
--- NOTE | 2018-08-02 17:50 | NUR ---
RECEIVED PT FROM ICU NURSE FLORA. PT IS ASLEEP. NO S/S OF ACUTE DISTRESS NOTED. PT IS ON 2 L O2 NC. TRIPLE LUMEN CENTRAL LINE NOTED ON THE RIJ. LFA IV SITE NOTED 20 G. NS INFUSING 100 ML/HR. STAGE 2 PRESSURE WOUND NOTED ON THE COCCYX COVERED BY COMPOSITE DRESSING. BOOT NOTED ON THE RLE. FALL PRECAUTIONS IN PLACE. CALL LIGHT PLACED WITHIN REACH. TRANSFER VS: BP 107/46 (L CALF); HR 71, O2 96 ON 2 L, TEMP 97.9 TEMPORAL, RR 20. Addendum: 08/02/18 at 1820 by Bhumi Higgins RN KUHN CATHETER DRAINING DARK CHANTAL URINE
--- NOTE | 2018-08-02 18:21 | NUR ---
AFTER VERIFYING AND USING PHONE NUMBER PROVIDED, INFORMED PATIENT'S SON GLENDA THAT PATIENT IS TRANSFERRED TO [facility]
--- NOTE | 2018-08-02 19:25 | NUR ---
PT ENDORSED TO TOURIST INFORMATION OFFICER IN STABLE CONDITION
--- NOTE | 2018-08-02 19:26 | NUR ---
REPORT RECEIVED FROM AM NURSE AT BEDSIDE. PT IN STABLE CONDITION. AAOX1. INTRODUCED SELF TO PT FAMILY. BOARD UPDATED. FLACC 0. NO SOB. AFEBRILE. IV SITE L FA 20G RUNNING NS@100ML/HR PATENT AND INTACT. PT ALSO HAS A R IJ TRIPLE LUMEN ALL 3 PATENT AND INTACT. SKIN WARM, DRY, AND NOT INTACT DUE TO COCCYX STAGE 2 PRESSURE ULCER AND TESTICULAR CELLULITIS. PT HAS KUHN IN PLACE. PT ON 2L O2 VIA NC. BED LOCKED IN LOW POSITION. CALL HILL WITHIN REACH. SAFETY PRECAUTIONS IN PLACE. ALL NEEDS MET AT THIS TIME.
--- NOTE | 2018-08-02 20:44 | NUR ---
DI JEFFREY AND ILDA. MIRALAX GIVEN PO. PT TOLERATED WELL.
--- NOTE | 2018-08-02 22:30 | NUR ---
PT SLEEPING COMFORTABLY BUT IS AROUSABLE. NO S/S OF DISTRESS NOTED. WILL CONTINUE TO MONITOR.
[2018-08-03] VITALS: BP 121/63
[2018-08-03] MEDS: HYDRAGUARD CREAM TP SCH ×2 (00:04→12:54)
[2018-08-03] MEDS: Z-GUARD PASTE TP SCH ×2 (00:04→12:54)
--- NOTE | 2018-08-03 00:04 | NUR ---
ZGUARD AND HYDRAGUARD APPLIED.
--- NOTE | 2018-08-03 02:45 | NUR ---
PT SLEEPING COMFORTABLY IN BED. NO S/S OF DISTRESS NOTED. WILL CONTINUE TO MONITOR.
[2018-08-03] MEDS: NACL 0.9% 1,000 ML IV SCH ×2 (03:49→17:50)
[2018-08-03 04:00] VITALS: BP 138/62
[2018-08-03] MEDS: metroNIDAZOLE 500 MG/NS PREMIX 100 ML IV SCH ×3 (04:32→20:25)
--- NOTE | 2018-08-03 04:32 | NUR ---
DI HUNG AND RUNNING. PT TOLERATING WELL.
[2018-08-03] MEDS: VANCOMYCIN 1GM/DEXT 5% PREMIX 200 ML IV SCH ×2 (05:41→17:59)
--- NOTE | 2018-08-03 05:41 | NUR ---
KARLA JEFFREY AND RUNNING. PT TOLERATING WELL.
--- NOTE | 2018-08-03 05:56 | NUR ---
PATIENT UNABLE TO PERFORM INCENTIVE SPIROMETER
[2018-08-03 06:16] LABS: BASOPHILS % (AUTO) 0.4 % (0.0-2.0); EOSINOPHILS # (AUTO) 0.1 K/uL (0-0.4); HEMATOCRIT 24.7 % (36-52); HEMOGLOBIN 7.9 g/dL (12.0-18.0); LYMPHOCYTES # (AUTO) 0.7 K/uL (2.0-11.5); MEAN CORPUSCULAR HEMOGLOBIN 27 pg (27-31); MEAN CORPUSCULAR HGB CONC 32 g/dL (33-37); MEAN CORPUSCULAR VOLUME 83.4 fL (80-94); MONOCYTES # (AUTO) 0.8 K/uL (0.8-1.0); MONOCYTES % (AUTO) 13.7 % (1.7-9.3); NEUTROPHILS # (AUTO) 4.1 K/uL (1.8-7.7); NEUTROPHILS % (AUTO) 71.9 % (42.2-75.2); PLATELET COUNT (AUTO) 152 K/uL (140-450); RED BLOOD CELL COUNT(AUTO) 2.96 MIL/uL (4.20-6.10); WHITE BLOOD COUNT (AUTO) 5.7 K/uL (4.8-10.8)
--- NOTE | 2018-08-03 07:20 | NUR ---
RECEIVED PT REPORT FROM SURGICAL DRESSING MAKER NURSE AT BEDSIDE. PT IS AAOX1. FLACC 0. NO S/S OF ACUTE DISTRESS ON 2L O2 NC. IV SITE L FA 20G, PATENT AND INTACT, SL. R IJ TRIPLE LUMEN ALL 3 PATENT AND INTACT. SKIN WARM, DRY, LEFT BUTTOCK PRESSURE ULCER AND TESTICULAR CELLULITIS WITH PUS COMING OUT. KUHN CATH IN PLACE DRAINING CHANTAL URINE. BED LOCKED IN LOWEST POSITION. CALL LIGHT WITHIN REACH. SAFETY PRECAUTIONS IN PLACE. ALL NEEDS MET AT THIS TIME.
[2018-08-03 07:23] LABS: ANION GAP 8.9 (8-16); CARBON DIOXIDE 25.2 mmol/L (21-32); CHLORIDE 110 mmol/L (98-107); GLUCOSE 86 mg/dL (74-106); POTASSIUM 4.1 mmol/L (3.5-5.1); SODIUM SERUM 140 mmol/L (136-145); UREA NITROGEN, BLOOD 14 mg/dL (7-18)
[2018-08-03 07:29] LABS: PHOSPHORUS 3.3 mg/dL (2.5-4.9)
[2018-08-03] MEDS: ALBUTEROL SULFATE/IPRATROPIU 3 ML SOL IH SCH ×3 (07:29→19:36)
--- NOTE | 2018-08-03 07:44 | NUR ---
RECEIVED PATIENT ON 2L NC, PULSE OX SAT 95%. SCHEDULED BREATHING TREATMENT ADMINISTERED. TOLERATED TX WELL, NO ADVERSE SIDE EFFECTS. ORALLY SUCTIONED SCANT AMOUNT OF THICK YELLOW/PINK TINGED SECRETIONS. PLACED PATIENT BACK ON 2L NC. NO RESPIRATORY DISTRESS NOTED AT THIS TIME. WILL CONTINUE TO MONITOR.
[2018-08-03 08:00] VITALS: BP 106/46
[2018-08-03] MEDS ORDERED: FERROUS SULFATE 325 MG TABEC PO SCH (08:00)
[2018-08-03] MEDS: GABAPENTIN 300 MG CAP PO SCH ×3 (08:39→17:40)
[2018-08-03] MEDS: CARBIDOPA/LEVODOPA 25/100 MG 1 TAB PO SCH ×3 (08:39→17:39)
[2018-08-03] MEDS: LACTULOSE 20 GM/30 ML UDC PO SCH ×3 (08:39→17:40)
[2018-08-03] MEDS: FINASTERIDE 5 MG TAB PO SCH (08:39)
[2018-08-03] MEDS: FERROUS SULFATE 300 MG/5 ML UDC PO SCH (08:40)
[2018-08-03] MEDS: LACTOBACILLUS RHAMNOSUS GG 1 EACH CAP PO SCH (08:40)
[2018-08-03] MEDS: TAMSULOSIN 0.4 MG CAP PO SCH (08:40)
[2018-08-03] MEDS: POLYETHYLENE GLYCOL 17 GM/PKT PO SCH ×2 (08:41→20:27)
[2018-08-03] MEDS: PANTOPRAZOLE 40 MG INJ VIAL IVP SCH (08:41)
[2018-08-03] MEDS: ASCORBIC ACID 500 MG/5 ML ORASYR PO SCH (08:43)
[2018-08-03] MEDS ORDERED: ASCORBIC ACID 500 MG TAB PO SCH (09:00)
--- NOTE | 2018-08-03 09:00 | NUR ---
ALL MED WAS GIVEN, CRUSHED AND MIXED WITH APPLE SAUCE AND THICKENER AND FED TO PT WITH SPOON.
[2018-08-03 12:00] VITALS: BP 112/61
[2018-08-03] MEDS: ACETAMINOPHEN 325 MG TAB PO PRN (12:53)
[2018-08-03] MEDS: COMPOSITE DRESSING TP SCH (12:54)
--- NOTE | 2018-08-03 13:42 | NUR ---
ADJUSTED IVF NS TO 40ML/HR Addendum: 08/03/18 at 1345 by Elder Russell RN PT IS RECEIVING BREATHING TX.
--- NOTE | 2018-08-03 14:01 | NUR ---
SCHEDULED BREATHING TREATMENT ADMINISTERED. TOLERATED TX WELL, NO ADVERSE SIDE EFFECTS. POST TX, NASOTRACHEAL SUCTIONED PATIENT WITHOUT INCIDENT. OBTAINED SPUTUM SAMPLE. NO RESPIRATORY DISTRESS NOTED AT THIS TIME. WILL CONTINUE TO MONITOR.
--- NOTE | 2018-08-03 14:23 | NUR ---
CM NOTE PER DR. SOTO TORRES, SHE IS PLANNING TO DC PATIENT TOMORROW WITH HOME HEALTH. FAXED ORDER FOR HOME HEALTH AND FILM EDITOR SUPERVISOR NOTE TO HEATHER [phone]. TERRY HESS.
--- NOTE | 2018-08-03 14:30 | NUR ---
DR VALERA SEEN THE PT. WANTS TO RECOLLECT THE SCROTUM WOUND CULTURE. AND CALLED RT FOR SUCTION AND OBTAIN SPUTUM SAMPLE.
--- NOTE | 2018-08-03 14:35 | NUR ---
Shop Superintendent Note: Per Adelia from [facility] , they don't have a contract with [facility], unable to accept referral for abx ivs. Per Santiago from [facility] / , they don't have a contract with [facility], unable to accept referral. I faxed inquiry to [facility], phone number , fax .
[2018-08-03 16:00] VITALS: BP 95/49
[2018-08-03] MEDS ORDERED: SKINTEGRITY HYDROGEL TP SCH (16:00)
--- NOTE | 2018-08-03 16:20 | NUR ---
WOUND CARE DONE. PLACED HYDROGEL ON SCROTUM AND PLACED ABD PAD ON TOP DUE TO MODERATE DRAINAGE. PLACED COMPOSITE DRESSING ON TOP. BUTTOCK WOUND WAS CLEANED WITH WOUND CLEANSE SOLUTION, PATTED DRY, APPLIED Z GUARD AND FOAM DRESSING.
--- NOTE | 2018-08-03 16:40 | NUR ---
PT LUNG SOUNDS LIKE CRACKLES AND RHONCHI. TRIED ORAL SUCTION, DID NOT GET MUCH SPUTUM. CALLED RT TO SUCTION PT.
--- NOTE | 2018-08-03 16:40 | NUR ---
NOTIFIED DR REID ABOUT LATEST BP 92/45, HR 90. DR WILL ORDER NS BOLUS 250ML. AND INCREASE IVF TO 100ML/HR
[2018-08-03] MEDS ORDERED: NACL 0.9% 250 ML IV SCH (17:00)
--- NOTE | 2018-08-03 19:35 | NUR ---
ENDORSED PT TO LIBRARY SCIENCE PROFESSOR RN. PT IN STABLE CONDITION.
--- NOTE | 2018-08-03 19:36 | NUR ---
RECEIVED REPORT FROM DAY SHIFT RN SAM. PT IS AAOX1. FLACC 0. NO S/S OF ACUTE DISTRESS ON 2L O2 NC. IV SITE L FA 20G, PATENT AND INTACT, SALINE LOCK. R IJ TRIPLE LUMEN ALL 2 PATENT AND INTACT. IVF INFUSING PER ORDERS. LEFT BUTTOCK PRESSURE ULCER DRESSING CLEAN DRY AND INTACT AND TESTICULAR CELLULITIS WITH PUS COMING OUT. KUHN CATH IN PLACE DRAINING CHANTAL URINE. BED LOCKED IN LOWEST POSITION. CALL LIGHT WITHIN REACH. WILL CONTINUE TO MONITOR.
[2018-08-03 20:00] VITALS: BP 148/52
--- NOTE | 2018-08-03 20:25 | NUR ---
VITAL SIGNS ARE WITHIN NORMAL LIMITS. DUE MEDICATIONS ADMINISTERED. PT TOLERATED WELL. ALL NEEDS MET AT THIS TIME. WILL CONTINUE TO MONITOR.
--- NOTE | 2018-08-03 21:30 | NUR ---
PT GIVEN DUE MEDS OF FLAGYL AND MIRALAX WHICH HE ONLY CONSUMED ABOUT 20% OF THE THICKENED DRINK. PT GIVEN TYLENOL 650MG AND WAS ALSO PROVIDED ICE PACKS FOR COOLING MEASURES. WILL CONTINUE TO MONITOR TEMPERATURE.
[2018-08-04] VITALS: BP 103/56
--- NOTE | 2018-08-04 | NUR ---
VS WITHIN NORMAL LIMITS. ALL NEEDS MET AT THIS TIME. CALL LIGHT WITHIN REACH.
--- NOTE | 2018-08-04 00:15 | NUR ---
I&D OF SCROTUM AT BEDSIDE. PT TOLERATED WELL. MORPHINE GIVEN FOR PAIN. VS WITHIN NORMAL LIMITS. PER MD COVER WITH DRESSING AND WOUND EVAL FOR TOMORROW. WILL CONTINUE TO MONITOR.
[2018-08-04] MEDS: NACL 0.9% 1,000 ML IV SCH ×2 (00:23→13:00)
[2018-08-04] MEDS: HYDRAGUARD CREAM TP SCH ×2 (00:23→14:08)
[2018-08-04] MEDS: Z-GUARD PASTE TP SCH ×2 (00:23→14:09)
--- NOTE | 2018-08-04 02:30 | NUR ---
PT SLEEPING COMFORTABLY IN BED. NO S/S OF DISTRESS NOTED. CALL LIGHT WITHIN REACH.
[2018-08-04 04:00] VITALS: BP 108/46
--- NOTE | 2018-08-04 04:00 | NUR ---
VS ARE WITHIN NORMAL LIMITS. CALL LIGHT WITHIN REACH.
[2018-08-04] MEDS: metroNIDAZOLE 500 MG/NS PREMIX 100 ML IV SCH ×3 (04:53→21:51)
--- NOTE | 2018-08-04 05:00 | NUR ---
PT WAS CLEANED AND REPOSITION FOR COMFORT. CHANGED DRESSING. PT TOLERATED WELL. WILL CONTINUE TO MONITOR.
[2018-08-04 06:35] LABS: ANION GAP 6.8 (8-16); CARBON DIOXIDE 23.7 mmol/L (21-32); CHLORIDE 113 mmol/L (98-107); CREATININE 1.1 mg/dL (0.7-1.3); GLUCOSE 121 mg/dL (74-106); POTASSIUM 3.5 mmol/L (3.5-5.1); SODIUM SERUM 140 mmol/L (136-145); UREA NITROGEN, BLOOD 13 mg/dL (7-18)
--- NOTE | 2018-08-04 07:21 | NUR ---
ENDORSED TO DAY SHIFT RN. PT IS IN STABLE CONDITION. SAFETY MEASURES ARE IN PLACE.
--- NOTE | 2018-08-04 07:25 | NUR ---
RECEIVED BEDSIDE REPORT FROM FAMILY RESOURCE COORDINATOR NURSE. AOX1, NAME. DENIES PAIN. ON 2L/MIN VIA NC. . NO SIGNS OF DISTRESS NOTED. IV ON L FA 20G, CLEAN AND DRY, NOT INFUSING AT THIS TIME. R IJ TRIPLE LUMEN, PATENT AND INTACT, INFUSING PER MD ORDER. TRIPLE LUMEN SITE CLEAN AND DRY. FOREHEAD HAS A SKIN TEAR. LEFT BUTTLOCK PRESSURE ULCER HAS CLEAN DRESSING AND DRY. BEDBOUND. KUHN CATH IN PLACE, DRAIN WELL. SAFETY MEASURES IN PLACE. BED IN LOW POSITION, CALL LIGHT WITHIN REACH.
[2018-08-04 08:00] VITALS: BP 112/71
[2018-08-04] MEDS: ALBUTEROL SULFATE/IPRATROPIU 3 ML SOL IH SCH ×3 (08:22→19:01)
[2018-08-04 08:23] LABS: BASOPHILS % (AUTO) 0.3 % (0.0-2.0); HEMATOCRIT 21.8 % (36-52); LYMPHOCYTES # (AUTO) 0.5 K/uL (2.0-11.5); MEAN CORPUSCULAR HEMOGLOBIN 26 pg (27-31); MONOCYTES # (AUTO) 0.6 K/uL (0.8-1.0)
[2018-08-04 08:31] LABS: LYMPHOCYTES % (AUTO) 10.3 % (20.5-51.1); MEAN CORPUSCULAR HGB CONC 32 g/dL (33-37); MEAN CORPUSCULAR VOLUME 81.8 fL (80-94); MONOCYTES % (AUTO) 12.2 % (1.7-9.3); NEUTROPHILS # (AUTO) 3.9 K/uL (1.8-7.7); NEUTROPHILS % (AUTO) 77.2 % (42.2-75.2); PLATELET COUNT (AUTO) 130 K/uL (140-450); RED BLOOD CELL COUNT(AUTO) 2.66 MIL/uL (4.20-6.10); RED CELL DISTRIBUTION WIDTH 15.9 % (11.6-13.7)
[2018-08-04] MEDS: LACTOBACILLUS RHAMNOSUS GG 1 EACH CAP PO SCH (09:00)
[2018-08-04] MEDS: TAMSULOSIN 0.4 MG CAP PO SCH (09:00)
[2018-08-04] MEDS: GABAPENTIN 300 MG CAP PO SCH ×3 (09:00→17:04)
[2018-08-04] MEDS: CARBIDOPA/LEVODOPA 25/100 MG 1 TAB PO SCH ×3 (09:00→17:04)
[2018-08-04] MEDS: FINASTERIDE 5 MG TAB PO SCH (09:01)
[2018-08-04] MEDS: LACTULOSE 20 GM/30 ML UDC PO SCH ×3 (09:02→17:04)
[2018-08-04] MEDS: FERROUS SULFATE 300 MG/5 ML UDC PO SCH (09:02)
[2018-08-04] MEDS: POLYETHYLENE GLYCOL 17 GM/PKT PO SCH ×2 (09:03→21:51)
[2018-08-04] MEDS: PANTOPRAZOLE 40 MG INJ VIAL IVP SCH (09:03)
[2018-08-04] MEDS: SKINTEGRITY HYDROGEL TP SCH (09:05)
[2018-08-04] MEDS: ASCORBIC ACID 500 MG/5 ML ORASYR PO SCH (09:12)
--- NOTE | 2018-08-04 09:30 | NUR ---
ADMINISTERED MEDS PER MD ORDER. MIXED MEDS WITH APPLE SAUCE AND SPOON-FEED WITH THICKENED WATER. PT TOLERATED WELL. NO SIGNS OF DISTRESS NOTED.
--- NOTE | 2018-08-04 10:33 | NUR ---
Repair Welder Note: Per , we will wait for final culture results before home health services can be coordinated for abx ivs. I called and spoke with Destinee from [facility], phone number , fax , requested for her to please cancel referral.
--- NOTE | 2018-08-04 11:02 | NUR ---
FAMILY IS AT BEDSIDE. NO SIGNS OF DISTRESS NOTED.
[2018-08-04 12:00] VITALS: BP 96/44
--- NOTE | 2018-08-04 12:04 | NUR ---
S/P I&D TO LEFT SCROTAL AREA, 3X0.5X2CM WOUND BED IS RED, ALEXANDRE-WOUND SKIN ERYTHEMA WITH PARTIAL THICKNESS LOSS OF SKIN, SMALL AMOUNT OF SANGUINOUS DRAINAGE, NO ODOR, SWELLING HAS DECREASING. RECOMMENDATIONS: -COLD COMPRESS TO SCROTAL AREA BID X 15 MINUTES -CLEANSE LEFT SCROTAL SURGICAL SITE WITH NS. PACK WOUND WITH HYDROGEL AND ADAPTIC DRESSING, COVER WITH DRY DRESSING QD AND PRN IF SOILING -KEEP AREA DRY AND CLEAN AT ALL TIMES -SNF FOR CONTINUE WOUND CARE AND ANTIBIOTIC THERAPY AND DR. VALERA AT BEDSIDE, ALL RECOMMENDATIONS DISCUSSED WITH AND DR. VALERA WILL CONTACT SON. ALL CONVERSATION TRANSLATED BY INTEGRATION ENGINEERBERNARD FOREMAN TO .
--- NOTE | 2018-08-04 13:21 | NUR ---
08/04/18 RD FOLLOW UP COMPLETED PLEASE REFER TO NUTRITION ASSESSMENT UNDER CARE ACTIVITY FOR ESTIMATED NUTRITIONAL NEEDS. RD RECOMMENDATIONS: 1. CONTINUE PUREE DIET WITH PROSOURCE BID TOLERATED 2. ENCOURAGE INCREASING PO INTAKE 3. IF PO INTAKE REMAINS <50% CONSIDER ENTERAL NUTRITION SUPPORT TO SUPPLEMENT DIET WITH ADEQUATE ENERGY AND PROTEIN INTAKE 4. RD TO FOLLOW-UP 2-3 DAYS, HIGH RISK YOGI PRYOR, LORA
[2018-08-04] MEDS ORDERED: FUROSEMIDE 20 MG/2 ML VIAL IVP SCH (14:00)
[2018-08-04] MEDS: COMPOSITE DRESSING TP SCH (14:08)
[2018-08-04] MEDS ORDERED: VANCOMYCIN PER PHARMACY MC PRN (14:20)
--- NOTE | 2018-08-04 14:45 | NUR ---
CHECKED PT'S BP PRIOR TO ADMINISTER MED, BP 112/44. ADMINISTERED MED PER MD ORDER.
[2018-08-04 16:00] VITALS: BP 101/54
--- NOTE | 2018-08-04 16:07 | NUR ---
PT IS SLEEPING NOW. NO SIGNS OF DISTRESS NOTED.
--- NOTE | 2018-08-04 17:08 | NUR ---
LATE ENTRY CALLED [facility] AND SPOKE WITH MAKAYLA ABOUT HOME HEALTH AND IV ANTIBIOTICS. SHE SAID FOR AUTH CALL [phone], EMILY [phone] OR ARAM [phone] OR DANIELLA [phone].
--- NOTE | 2018-08-04 17:10 | NUR ---
ADMINISTERED MEDS WITH APPLE SAUCE. PT TOLERATED WELL. NO SIGNS OF DISTRESSED.
[2018-08-04] MEDS ORDERED: SKINTEGRITY HYDROGEL TP PRN (18:25)
[2018-08-04] MEDS: VANCOMYCIN 1GM/DEXT 5% PREMIX 200 ML IV SCH (18:28)
--- NOTE | 2018-08-04 18:32 | NUR ---
PATIENT IS SLEEPING AT THIS TIME. FLACC 0. NO SIGNS OF DISTRESS NOTED.
[2018-08-04] MEDS: ACETYLCYSTEINE 10% (100 MG/ML) 100 MG/ML VIAL INH SCH (19:01)
--- NOTE | 2018-08-04 19:20 | NUR ---
BEDSIDE REPORT GAVE TO SUPERVISOR TANK HOUSE NURSE. PT IS IN STABLE CONDITION.
[2018-08-04 20:00] VITALS: BP 101/50
--- NOTE | 2018-08-04 20:00 | NUR ---
PT IN BED WITH ALL FALLS AND ASPIRATION PRECAUTIONS IN PLACE. PT TURNED AND REPOSITIONED. SMEAR OF BM NOTED, SACRAL DRESSING INTACT. PT ALSO HAS DRESSING IN TACT ON SCROTUM , BUT WITH A MODERATE AMOUNT OF DRAINAGE NOTED. WILL PROVIDE WOUND CARE LATER. KUHN CATH INTACT AND DRAINED 500MLS OF CLOUDY URINE. LUNG SOUNDS DIMINISHED WITH SOME RHOINCI NOTED. PT IS AOX1 RESTING WITH EYES CLOSED BUT RESPONSIVE TO NAME. DINNER AT BEDSIDE , PT ATE ABOUT 10% OF MEAL AND CONSUMED ABOUT 20% OF THE MEAL. V/S FOLLOWS T 101.5 P 92 R 18 B/P 101/50 02 92% ON R/A.
[2018-08-04] MEDS: ACETAMINOPHEN 325 MG TAB PO PRN (22:19)
[2018-08-05] VITALS: BP 90/42
--- NOTE | 2018-08-05 00:45 | NUR ---
PT IN BED RESTING WITH EYES CLOSED BUT RESPONSIVE TO NAME. V/S FOLLOWS T 100.1 P 76 R 18 B/P 90/42 02 92 WITH 2LITERS VIA N/C. DR. TORIBIO UPDATED ON PT V/S. WILL CONTINUE TO MONITOR ALL V/S. ORAL CARE PROVIDED. BED IN LOW POSITION WITH ALL FALLS PRECAUTIONS IN PLACE.
[2018-08-05] MEDS: ACETYLCYSTEINE 10% (100 MG/ML) 100 MG/ML VIAL INH SCH ×4 (01:00→19:29)
[2018-08-05] MEDS: HYDRAGUARD CREAM TP SCH ×2 (01:00→13:00)
[2018-08-05] MEDS: Z-GUARD PASTE TP SCH ×2 (01:00→13:00)
--- NOTE | 2018-08-05 02:00 | NUR ---
PT TURNED AND REPOSITIONED/ WOUND CARE AND MOUTH CARE PROVIDED. SOME MODERATE SEROSANGUINEOUS DRAINAGE NOTED.
[2018-08-05 04:00] VITALS: BP 102/50
[2018-08-05] MEDS: metroNIDAZOLE 500 MG/NS PREMIX 100 ML IV SCH ×3 (05:18→21:05)
--- NOTE | 2018-08-05 05:24 | NUR ---
YL HUNG ORDERED, NO S/S OF ADVERSE EFFECTS NOTED. PT TURNED, AND REPOSITIONED NO B/M YET KUHN CATHETER IN PLACE AND DRAINING CHANTAL URINE.
[2018-08-05] MEDS: ALBUTEROL SULFATE/IPRATROPIU 3 ML SOL IH SCH ×3 (07:05→19:28)
--- NOTE | 2018-08-05 07:18 | NUR ---
ENDORSED CARE TO SITAL RN DAYSHIFT NURSE, AT BEDSIDE FOR CONTINUITY OF CARE, PT IN STABLE CONDITION. RT AT BEDSIDE GIVEN NEB TREATMENT.
--- NOTE | 2018-08-05 07:19 | NUR ---
RECEIVED REPORT FROM PM NURSE AT BEDSIDE. PT SLEEPING AT THIS TIME. PT HAS RT IJ TRIPLE LUMEN, IVF INFUSING WELL. PT ON FALL RISK PRECAUTION, CALL LIGHT WITHIN PT REACH. HAS KUHN CATHETER IN PLACE. PT HAS SWOLLEN SCROTUM, HAD I&D YESTERDAY PER PM NURSE. TOOK OUT PUS FROM THE SITE. PT HAS BRUISING ON THE UPPER EXTREMITY , BILATERAL. HAS REDNESS IN BUTTOCK. ALL SAFETY MEASURE IN PLACE. WILL CONTINUE TO MONITOR PT.
[2018-08-05 07:34] LABS: ANION GAP 6.7 (8-16); CARBON DIOXIDE 26.1 mmol/L (21-32); CHLORIDE 111 mmol/L (98-107); GLUCOSE 87 mg/dL (74-106); POTASSIUM 3.8 mmol/L (3.5-5.1); SODIUM SERUM 140 mmol/L (136-145); UREA NITROGEN, BLOOD 15 mg/dL (7-18)
[2018-08-05 07:39] LABS: MAGNESIUM 1.9 mg/dL (1.8-2.4); PHOSPHORUS 3.2 mg/dL (2.5-4.9)
[2018-08-05 08:00] VITALS: BP 105/47
[2018-08-05] MEDS: SKINTEGRITY HYDROGEL TP SCH ×2 (09:00)
[2018-08-05] MEDS ORDERED: FUROSEMIDE 20 MG/2 ML VIAL IVP SCH (09:00)
[2018-08-05 10:28] LABS: BASOPHILS % (AUTO) 0.6 % (0.0-2.0); EOSINOPHILS % (AUTO) 0.2 % (0.0-4.0); HEMATOCRIT 21.1 % (36-52); LYMPHOCYTES # (AUTO) 0.6 K/uL (2.0-11.5); LYMPHOCYTES % (AUTO) 21.1 % (20.5-51.1); MEAN CORPUSCULAR HEMOGLOBIN 26 pg (27-31); MEAN CORPUSCULAR HGB CONC 32 g/dL (33-37); MEAN CORPUSCULAR VOLUME 82.1 fL (80-94); MONOCYTES # (AUTO) 0.7 K/uL (0.8-1.0); MONOCYTES % (AUTO) 23.1 % (1.7-9.3); NEUTROPHILS # (AUTO) 1.5 K/uL (1.8-7.7); PLATELET COUNT (AUTO) 117 K/uL (140-450); RED BLOOD CELL COUNT(AUTO) 2.58 MIL/uL (4.20-6.10); WHITE BLOOD COUNT (AUTO) 2.8 K/uL (4.8-10.8)
[2018-08-05] MEDS: PANTOPRAZOLE 40 MG INJ VIAL IVP SCH (10:35)
[2018-08-05] MEDS: FERROUS SULFATE 300 MG/5 ML UDC PO SCH (10:36)
[2018-08-05] MEDS: CARBIDOPA/LEVODOPA 25/100 MG 1 TAB PO SCH ×3 (10:37→17:49)
[2018-08-05] MEDS: GABAPENTIN 300 MG CAP PO SCH ×3 (10:37→17:49)
[2018-08-05] MEDS: LACTULOSE 20 GM/30 ML UDC PO SCH ×2 (10:37→13:00)
[2018-08-05] MEDS: LACTOBACILLUS RHAMNOSUS GG 1 EACH CAP PO SCH (10:38)
[2018-08-05] MEDS: FINASTERIDE 5 MG TAB PO SCH (10:38)
[2018-08-05] MEDS: POLYETHYLENE GLYCOL 17 GM/PKT PO SCH ×2 (10:39→21:05)
[2018-08-05] MEDS: ASCORBIC ACID 500 MG/5 ML ORASYR PO SCH (10:45)
[2018-08-05] MEDS: TAMSULOSIN 0.4 MG CAP PO SCH (10:45)
--- NOTE | 2018-08-05 11:10 | NUR ---
ADMINISTERED MEDS TO PT ORDERED. CRUSHED MEDS AND MIXED WITH APPLE SAUCE. PT TOLERATED WELL. PT TAKES MEDS VERY SLOWLY. PT APPEARS DROWSY, SLIGHTLY OPENS EYES. PT PLACED ON SEMI HIGH FOWLERS POSITION TO ADMINISTER PO MEDS. TOLERATED WELL. HAS SLIGHT COUGHING WHILE TAKING MEDS. ALL SAFETY MEASURE IN PLACE. WILL CONTINUE TO MONITOR PT.
[2018-08-05] MEDS: NACL 0.9% 1,000 ML IV SCH (11:33)
[2018-08-05 12:00] VITALS: BP 90/45
[2018-08-05] MEDS: COMPOSITE DRESSING TP SCH (13:00)
[2018-08-05 13:12] LABS: HEMOGLOBIN 6.8 g/dL (12.0-18.0)
--- NOTE | 2018-08-05 13:30 | NUR ---
CHECKED ON PT . FAMILY AT THE BEDSIDE. ADMINISTERED MEDS TO PT ORDERED. TOLERATED WELL. CHECKED THE DRESSING ON THE SCROTAL REGION, CHANGED IT. DRESSING IS INTACT ON THE SACRAL THE SACRAL REGION. BLOOD CONSENT OBTAINED FROM THE SON AT BEDSIDE. WILL ADMINISTER BLOOD ONCE READY. ALL SAFETY MEASURE IN PLACE. WILL CONTINUE TO MONITOR PT.
[2018-08-05 15:24] LABS: ALBUMIN 1.8 g/dL (3.4-5.0); ANION GAP 4.7 (8-16); ASPARTATE AMINOTRANSFERASE 46 U/L (15-37); CHLORIDE 108 mmol/L (98-107); GLUCOSE 110 mg/dL (74-106); POTASSIUM 3.7 mmol/L (3.5-5.1); SODIUM SERUM 137 mmol/L (136-145); TOTAL BILIRUBIN 0.6 mg/dL (0.0-1.0); UREA NITROGEN, BLOOD 14 mg/dL (7-18)
[2018-08-05 16:00] VITALS: BP 102/55
--- NOTE | 2018-08-05 17:01 | NUR ---
GOT CALL FROM BLOOD BANK. STATES PT IS B POS, HAS NO BLOOD IN STOCK, NEEDS TO BE ORDERED FROM [facility]. TAKE 2-3 HRS FOR THE DELIVERY.
[2018-08-05] MEDS: VANCOMYCIN 1GM/DEXT 5% PREMIX 200 ML IV SCH (17:54)
--- NOTE | 2018-08-05 18:00 | NUR ---
ADMINISTERED MEDS TO PT ORDERED. TOLERATED WELL. PT AT THE BEDSIDE. NO SIGN OF DISTRESS NOTED. DRESSING ON SCROTAL AREA IS DRY AND INTACT. FAMILY AT BEDSIDE. PT FEED BY LIME SLUDGE MIXER. SAFETY MEASURE IN PLACE. WILL CONTINUE TO MONITOR PT.
--- NOTE | 2018-08-05 18:51 | NUR ---
CHECKED ON THE PT. SUCTIONED AND PUT IN HIGH HARPER POSITION. PT SLIGHTLY COUGHING. NO SIGN OF DISTRESS NOTED. FAMILY AT BEDSIDE. STILL WAITING ON BLOOD TRANSFUSION. ALL SAFETY MEASURE IN PLACE. WILL CONTINUE TO MONITOR PT.
--- NOTE | 2018-08-05 19:15 | NUR ---
ENDORSED PT TO PM NURSE AT BEDSIDE. PT IN STABLE CONDITION.
--- NOTE | 2018-08-05 19:20 | NUR ---
RECEIVED REPORT FROM AM NURSE AT BEDSIDE. PT SLEEPING AT THIS TIME. PT HAS RT IJ TRIPLE LUMEN, IVF INFUSING WELL. PT ON FALL RISK PRECAUTION. HAS KUHN CATHETER IN PLACE. PT HAS BRUISING ON BILATERAL UPPER EXTREMITY. HAS REDNESS IN BUTTOCK. ALL SAFETY MEASURE IN PLACE. BED IN THE LOWEST POSITION, CALL LIGHT WITHIN REACH. WILL CONTINUE TO MONITOR.
[2018-08-05 20:00] VITALS: BP 91/50
--- NOTE | 2018-08-05 22:10 | NUR ---
FREQUENT CHECKS MADE. EYES CLOSED, VISIBLE CHEST RISE AND FALL NOTED. WILL CONTINUE TO MONITOR.
--- NOTE | 2018-08-05 23:40 | NUR ---
1 UNIT PRBC TRANSFUSED TO PATENT. WILL CONTINUE TO MONITOR.
[2018-08-06] VITALS: BP 111/60
[2018-08-06] MEDS: HYDRAGUARD CREAM TP SCH ×2 (02:06→13:00)
[2018-08-06] MEDS: Z-GUARD PASTE TP SCH ×2 (02:07→13:00)
--- NOTE | 2018-08-06 02:10 | NUR ---
TRANSFUSION OF 1 UNIT PRBC COMPLETED AT THIS TIME. NO SOB OR DISTRESS NOTED THROUGHOUT TRANSFUSION. WILL CONTINUE TO MONITOR.
--- NOTE | 2018-08-06 03:58 | NUR ---
ROUNDS MADE, VITALS TAKEN. NO SOB OR DISTRESS NOTED. WILL CONTINUE TO MONITOR.
[2018-08-06 04:00] VITALS: BP 119/63
[2018-08-06 04:27] LABS: ANION GAP 5.9 (8-16); CARBON DIOXIDE 26.7 mmol/L (21-32); CHLORIDE 107 mmol/L (98-107); CREATININE 0.9 mg/dL (0.7-1.3); GLUCOSE 83 mg/dL (74-106); POTASSIUM 3.6 mmol/L (3.5-5.1); SODIUM SERUM 136 mmol/L (136-145); UREA NITROGEN, BLOOD 14 mg/dL (7-18)
[2018-08-06 05:25] LABS: HEMATOCRIT 24.4 % (36-52); MEAN CORPUSCULAR HEMOGLOBIN 27 pg (27-31); MEAN CORPUSCULAR HGB CONC 33 g/dL (33-37); MEAN CORPUSCULAR VOLUME 81.6 fL (80-94); PLATELET COUNT (AUTO) 115 K/uL (140-450); RED BLOOD CELL COUNT(AUTO) 2.99 MIL/uL (4.20-6.10); RED CELL DISTRIBUTION WIDTH 16.5 % (11.6-13.7); WHITE BLOOD COUNT (AUTO) 2.9 K/uL (4.8-10.8)
[2018-08-06 05:26] LABS: LYMPHOCYTES % (MANUAL) 26 % (20-46); MONOCYTES % (MANUAL) 14 % (5-12)
[2018-08-06] MEDS: metroNIDAZOLE 500 MG/NS PREMIX 100 ML IV SCH ×3 (05:48→20:45)
--- NOTE | 2018-08-06 07:18 | NUR ---
ENDORSED PATIENT TO AM SHIFT RN. PATIENT IN STABLE CONDITION.
--- NOTE | 2018-08-06 07:19 | NUR ---
REVEIVED REPORT FROM PM NURSE AT [facility]. PT SLEEPING ON BED AT THIS TIME. PT RECEIVED 1 UNIT PRBC FOR LOWER HGB LAST NIGHT. PER PM NURSE , PT TOLERATED WELL. NO SIGN OF DISTRESS NOTED. CALL LIGHT WITHIN REACH. WILL CONTINUE TO MONITOR PT.
[2018-08-06 08:00] VITALS: BP 113/63
[2018-08-06] MEDS: ALBUTEROL SULFATE/IPRATROPIU 3 ML SOL IH SCH ×3 (08:00→19:04)
[2018-08-06] MEDS: ACETYLCYSTEINE 10% (100 MG/ML) 100 MG/ML VIAL INH SCH ×3 (08:01→19:05)
[2018-08-06] MEDS: LACTOBACILLUS RHAMNOSUS GG 1 EACH CAP PO SCH (10:30)
[2018-08-06] MEDS: LACTULOSE 20 GM/30 ML UDC PO SCH (10:30)
[2018-08-06] MEDS: PANTOPRAZOLE 40 MG INJ VIAL IVP SCH (10:30)
[2018-08-06] MEDS: SKINTEGRITY HYDROGEL TP SCH ×2 (10:30)
[2018-08-06] MEDS: CARBIDOPA/LEVODOPA 25/100 MG 1 TAB PO SCH ×3 (10:30→17:43)
[2018-08-06] MEDS: FINASTERIDE 5 MG TAB PO SCH (10:30)
[2018-08-06] MEDS: GABAPENTIN 300 MG CAP PO SCH ×3 (10:30→17:43)
[2018-08-06] MEDS: FERROUS SULFATE 300 MG/5 ML UDC PO SCH (10:30)
[2018-08-06] MEDS: ASCORBIC ACID 500 MG/5 ML ORASYR PO SCH (10:30)
[2018-08-06] MEDS: POLYETHYLENE GLYCOL 17 GM/PKT PO SCH ×3 (10:30→21:00)
[2018-08-06] MEDS: TAMSULOSIN 0.4 MG CAP PO SCH (10:30)
[2018-08-06] MEDS ORDERED: FUROSEMIDE 20 MG/2 ML VIAL IVP SCH (11:00)
--- NOTE | 2018-08-06 11:15 | NUR ---
ADMINISTERED MEDS TO PT. CHANGED THE DRESSING ON THE INCISION SITE, PACKED WITH ADAPTIC DRESSING WITH HYDROGEL ORDERED . PT FAMILY AT BEDSIDE. PT SLIGHTLY COUGHING WHILE TAKING MEDS. FAMILY AT BEDSIDE. NO SIGN OF DISTYRESS NOTED. ALL SAFETY MEASURE IN PLACE. WILL CONTINUE TO MONITOR PT.
[2018-08-06] MEDS ORDERED: FLUCONAZOLE 200 MG/NS PREMIX 100 ML IV SCH (11:30)
[2018-08-06] MEDS: NACL 0.9% 1,000 ML IV SCH (11:33)
[2018-08-06 12:00] VITALS: BP 95/44
[2018-08-06] MEDS: COMPOSITE DRESSING TP SCH (13:00)
--- NOTE | 2018-08-06 13:00 | NUR ---
CHECKED ON PT ADMINISTERED MEDS ORDERED. PT TOLERATED WELL. NO SIGN OF DISTRESS NOTED. FAMILY AT BEDSIDE. HELPED FLY RAISER LOCKSTITCH TO TURN THE PT. ALL SAFETY MEASURE IN PLACE. WILL CONTINUE TO MONITOR PT.
--- NOTE | 2018-08-06 15:30 | NUR ---
ADMINISTERED MEDS TO PT. REPOSITIONED PT. TOLERATED WELL. NO SIGN OF DISTRESS NOTED. ALL SAFETY MEASURE IN PLACE. WILL CONTINUE TO MONITOR PT.
[2018-08-06 16:00] VITALS: BP 97/56
--- NOTE | 2018-08-06 17:30 | NUR ---
ADMINISTERED MEDS TO PT. INFUSED VANCO GAVE OTHER MEDS TO PT ORDERED. TOLERATED WELL. NO SIGN OF DISTRESS NOTED. WILL CONTINUE TO MONITOR PT.
[2018-08-06] MEDS: VANCOMYCIN 1GM/DEXT 5% PREMIX 200 ML IV SCH (17:43)
--- NOTE | 2018-08-06 18:30 | NUR ---
PT FAMILY AT THE BEDSIDE. PER EVICTION SPECIALIST , PT NOT EATING WELL. HAS GURGLING SOUND , POOLS THE SECRETION IN THE THROAT. TRIED FEEDING PT, NOT ABLE TO SWALLOW THE FOOD PROPERLY. PER FAMILY, PT DOESN'T LIKE SWEET, HAS MORE SECRETION IF PT GETS SWEET FOOD. INFORMED THAT WILL CONVEY INFORMATION TO PM SHIFT NURSE. PT LYING ON HIS BED COMFORTABLY. WILL CONTINUE TO MONITOR PT.
--- NOTE | 2018-08-06 19:15 | NUR ---
ENDORSED PT TO PM NURSE AT BEDSIDE. PT IN STABLE CONDITION.
--- NOTE | 2018-08-06 19:30 | NUR ---
RECEIVED REPORT FROM DAYSHIFT NURSE AT BEDSIDE FOR CONTINUITY OF CARE. PT AAOX2. PT IV NOTED RIJ TRIPLE LUMEN NS 20ML/HR. NO SOB NO S/S OF DISTRESS ON RA. PT HAS KUHN IN PLACE. BED LOWERED CALL LIGHT WITHIN REACH.
[2018-08-06 20:00] VITALS: BP 94/48
--- NOTE | 2018-08-06 21:00 | NUR ---
WHEN ADMINISTERING MIRALAX I PREPPED MEDICATION WITH BROTH (PT DOES NOT LIKE SWEETS) I THICKENED FLUIDS TO A NECTAR CONSISTENCY. I TRIED TO GIVE PT BY SPOON BUT WAS NOT SWALLOWING. PT WAS NOT ABLE TO FOLLOW COMMANDS AND EVERY TIME I ADMIN A SPOON FULL OF MEDICATION PT WOULD START COUGHING. HIS COUGH WAS VERY WET AND PT WAS UNABLE TO CLEAR HIS THROAT. PT MAY NEED ANOTHER SWALLOW EVAL. AFTER 3 TRIES I STOPPED.
[2018-08-07] VITALS: BP 106/54
[2018-08-07] MEDS: HYDRAGUARD CREAM TP SCH ×2 (00:48→13:21)
[2018-08-07] MEDS: Z-GUARD PASTE TP SCH ×2 (00:48→13:20)
[2018-08-07] MEDS: ACETYLCYSTEINE 10% (100 MG/ML) 100 MG/ML VIAL INH SCH ×5 (00:48→19:50)
[2018-08-07 04:00] VITALS: BP 106/46
[2018-08-07] MEDS ORDERED: PIPERACILLIN/TAZOBACTAM 3.375 GM VIAL IV ONE (04:43)
[2018-08-07] MEDS: PIPER/TAZO 3.375GM/D5W PREMIX 50 ML IV SCH ×3 (04:49→21:01)
[2018-08-07 06:37] LABS: ANION GAP 4.7 (8-16); CARBON DIOXIDE 29.7 mmol/L (21-32); CHLORIDE 110 mmol/L (98-107); CREATININE 0.9 mg/dL (0.7-1.3); GLUCOSE 87 mg/dL (74-106); POTASSIUM 3.4 mmol/L (3.5-5.1); SODIUM SERUM 141 mmol/L (136-145); UREA NITROGEN, BLOOD 13 mg/dL (7-18)
[2018-08-07 06:38] LABS: MAGNESIUM 1.8 mg/dL (1.8-2.4)
[2018-08-07 06:42] LABS: BASOPHILS % (AUTO) 0.6 % (0.0-2.0); HEMATOCRIT 24.2 % (36-52); LYMPHOCYTES % (AUTO) 25.6 % (20.5-51.1); MEAN CORPUSCULAR HEMOGLOBIN 27 pg (27-31); MEAN CORPUSCULAR HGB CONC 33 g/dL (33-37); MEAN CORPUSCULAR VOLUME 80.9 fL (80-94); MONOCYTES # (AUTO) 0.6 K/uL (0.8-1.0); MONOCYTES % (AUTO) 15.4 % (1.7-9.3); NEUTROPHILS # (AUTO) 2.2 K/uL (1.8-7.7); NEUTROPHILS % (AUTO) 57.4 % (42.2-75.2); PLATELET COUNT (AUTO) 128 K/uL (140-450); RED BLOOD CELL COUNT(AUTO) 2.99 MIL/uL (4.20-6.10); RED CELL DISTRIBUTION WIDTH 16.6 % (11.6-13.7); WHITE BLOOD COUNT (AUTO) 3.9 K/uL (4.8-10.8)
--- NOTE | 2018-08-07 07:21 | NUR ---
RECEIVED REPORT FROM COASTAL AND ESTUARY SPECIALIST RN AT BEDSIDE. PT SLEEPING AT THIS TIME. PT HAS RT IJ TRIPLE LUMEN, IVF INFUSING WELL. PT ON FALL RISK PRECAUTION, CALL LIGHT WITHIN PT REACH. HAS KUHN CATHETER IN PLACE. PT IS S/P I&D OF SCROTUM. TOOK OUT PUS FROM THE SITE. PT HAS BRUISING ON THE UPPER EXTREMITY , BILATERAL. HAS REDNESS IN BUTTOCK. ALL SAFETY MEASURE IN PLACE. WILL CONTINUE TO MONITOR PT. BED IN LOW POSITION, CALL LIGHT WITHIN REACH.
[2018-08-07] MEDS: ALBUTEROL SULFATE/IPRATROPIU 3 ML SOL IH SCH ×3 (07:37→19:50)
[2018-08-07 08:00] VITALS: BP 92/45
[2018-08-07] MEDS: TAMSULOSIN 0.4 MG CAP PO SCH (09:09)
[2018-08-07] MEDS: FINASTERIDE 5 MG TAB PO SCH (09:09)
[2018-08-07] MEDS: GABAPENTIN 300 MG CAP PO SCH ×3 (09:10→17:58)
[2018-08-07] MEDS: CARBIDOPA/LEVODOPA 25/100 MG 1 TAB PO SCH ×3 (09:10→17:58)
[2018-08-07] MEDS: LACTOBACILLUS RHAMNOSUS GG 1 EACH CAP PO SCH (09:10)
[2018-08-07] MEDS: FERROUS SULFATE 300 MG/5 ML UDC PO SCH (09:10)
[2018-08-07] MEDS: POLYETHYLENE GLYCOL 17 GM/PKT PO SCH ×2 (09:11→21:01)
[2018-08-07] MEDS: PANTOPRAZOLE 40 MG INJ VIAL IVP SCH (09:11)
[2018-08-07] MEDS: LACTULOSE 20 GM/30 ML UDC PO SCH (09:11)
[2018-08-07] MEDS: ASCORBIC ACID 500 MG/5 ML ORASYR PO SCH (09:14)
[2018-08-07] MEDS: SKINTEGRITY HYDROGEL TP SCH ×2 (09:15)
--- NOTE | 2018-08-07 09:38 | NUR ---
ADMINISTERED MORNING SCHEDULED MEDS TO PT. PT TOLERATED MEDS WELL. REPOSITIONED PT. TOLERATED WELL. NO SIGN OF DISTRESS NOTED. ALL SAFETY MEASURE IN PLACE. WILL CONTINUE TO MONITOR PT. BED IN LOW POSITIONS, CALL LIGHT WITHIN REACH.
[2018-08-07] MEDS ORDERED: POTASSIUM CHLORIDE 20% 40 MEQ/15 ML UDC PO SCH (10:30)
[2018-08-07] MEDS ORDERED: FLUCONAZOLE 100 MG/NS PREMIX 50 ML IV SCH (11:00)
[2018-08-07] MEDS: NACL 0.9% 1,000 ML IV SCH (11:33)
--- NOTE | 2018-08-07 11:48 | NUR ---
PT IN BED SLEEPING. ALL NEEDS MET AT THIS TIME. NO SIGNS OF PAIN OR DISTRESS NOTED. CALL LIGHT WITHIN REACH, BED IN LOW POSITION.
[2018-08-07 12:00] VITALS: BP 96/47
--- NOTE | 2018-08-07 13:09 | NUR ---
PT IN BED SLEEPING. NO PAIN OR DISTRESS AT THIS TIME. WILL CONTINUE TO ROUND FREQUENTLY. BED IN LOW POSITION, CALL LIGHT WITHIN REACH.
[2018-08-07] MEDS: COMPOSITE DRESSING TP SCH (13:20)
--- NOTE | 2018-08-07 15:21 | NUR ---
08/07/18 RD FOLLOW UP COMPLETED PLEASE REFER TO NUTRITION ASSESSMENT UNDER CARE ACTIVITY FOR ESTIMATED NUTRITIONAL NEEDS. RD RECOMMENDATIONS: 1. CONTINUE PUREE DIET WITH PROSOURCE BID TOLERATED 2. ENCOURAGE INCREASING PO INTAKE 3. CONTINUE VITAMIN C SUPPLEMENTATION FOR WOUND HEALING 4. IF PO INTAKE REMAINS <50% CONSIDER ENTERAL NUTRITION SUPPORT TO SUPPLEMENT DIET WITH ADEQUATE ENERGY AND PROTEIN INTAKE 5. RD TO FOLLOW-UP 2-3 DAYS, HIGH RISK YOGI PRYOR RD
--- NOTE | 2018-08-07 15:47 | NUR ---
PT SLEEPING IN BED CALMLY. WOUND CARE DONE, DRESSINGS CHANGED. PT TOLERATED WELL. NO SIGNS OF PAIN NOTED. PT NEEDS MET AT THIS TIME, WILL CONTINUE TO MONITOR FREQUENTLY. BED IN LOW POSITION, CALL LIGHT WITHIN REACH.
[2018-08-07 16:00] VITALS: BP 105/53
[2018-08-07 20:00] VITALS: BP 100/55
--- NOTE | 2018-08-07 20:00 | NUR ---
ENDORSED PT TO SLUBBER FRAME CHANGER FOR CONTINUITY OF CARE, PT IN STABLE CONDITION.
--- NOTE | 2018-08-07 20:00 | NUR ---
RECEIVED BEDSIDE REPORT FROM DAY SHIFT RN, PATIENT IN BED ON 2 L NC, LEFT IV 20 G, RIGHT IJ TRIPLE LUMEN INFUSING NS AT 20, KUHN CATH IN PLACE, SCROTAL DRESSING IN PLACE INTACT. V/S TAKEN WILL GIVE DUE MEDS.
--- NOTE | 2018-08-07 21:05 | NUR ---
DUE ZOSYN GIVEN, PATIENT STRUGGLING TO SWALLOW MIRALAX, POCKETS FOOD. LEFT HOB AT 45 DEGREES.
[2018-08-08] VITALS: BP 102/50
--- NOTE | 2018-08-08 | NUR ---
V/S TAKEN ALL WITHIN BASELINE
[2018-08-08] MEDS: HYDRAGUARD CREAM TP SCH ×2 (01:00→13:47)
[2018-08-08] MEDS: Z-GUARD PASTE TP SCH ×2 (01:00→13:47)
--- NOTE | 2018-08-08 01:30 | NUR ---
REINFORCED SCROTAL DRESSING, PATIENT SHOWS NO SIGNS OF PAIN
--- NOTE | 2018-08-08 02:00 | NUR ---
CHANGES PT X 1 SMALL BM NOTED.
[2018-08-08] MEDS: NACL 0.9% 1,000 ML IV SCH (02:24)
[2018-08-08 04:00] VITALS: BP 99/88
--- NOTE | 2018-08-08 04:00 | NUR ---
V/S TAKEN, CHANGES PT X 1. ALEXANDRE CARE PROVIDED.
[2018-08-08] MEDS: PIPER/TAZO 3.375GM/D5W PREMIX 50 ML IV SCH ×3 (05:16→20:41)
--- NOTE | 2018-08-08 05:30 | NUR ---
DUE ZOSYN GIVEN PATIENT TOLERATED WELL.
[2018-08-08 07:04] LABS: BASOPHILS % (AUTO) 0.7 % (0.0-2.0); EOSINOPHILS % (AUTO) 1.2 % (0.0-4.0); HEMATOCRIT 23.9 % (36-52); HEMOGLOBIN 7.7 g/dL (12.0-18.0); LYMPHOCYTES # (AUTO) 0.8 K/uL (2.0-11.5); LYMPHOCYTES % (AUTO) 27.7 % (20.5-51.1); MEAN CORPUSCULAR HEMOGLOBIN 26 pg (27-31); MEAN CORPUSCULAR HGB CONC 32 g/dL (33-37); MEAN CORPUSCULAR VOLUME 81.6 fL (80-94); MONOCYTES # (AUTO) 0.5 K/uL (0.8-1.0); MONOCYTES % (AUTO) 15.5 % (1.7-9.3); NEUTROPHILS # (AUTO) 1.7 K/uL (1.8-7.7); NEUTROPHILS % (AUTO) 54.9 % (42.2-75.2); PLATELET COUNT (AUTO) 116 K/uL (140-450); RED BLOOD CELL COUNT(AUTO) 2.93 MIL/uL (4.20-6.10); RED CELL DISTRIBUTION WIDTH 17.1 % (11.6-13.7)
[2018-08-08 07:13] LABS: ANION GAP 7.9 (8-16); CARBON DIOXIDE 31.4 mmol/L (21-32); CHLORIDE 105 mmol/L (98-107); CREATININE 0.9 mg/dL (0.7-1.3); GLUCOSE 75 mg/dL (74-106); POTASSIUM 3.3 mmol/L (3.5-5.1); SODIUM SERUM 141 mmol/L (136-145); UREA NITROGEN, BLOOD 12 mg/dL (7-18)
[2018-08-08 07:21] LABS: MAGNESIUM 1.9 mg/dL (1.8-2.4); PHOSPHORUS 3.4 mg/dL (2.5-4.9)
[2018-08-08] MEDS: ALBUTEROL SULFATE/IPRATROPIU 3 ML SOL IH SCH ×3 (07:28→20:05)
--- NOTE | 2018-08-08 07:30 | NUR ---
RECEIVED BEDSIDE REPORT FROM C ARCHITECT RN, PATIENT IN BED SLEEPING, ROUSED BY NAME, OX1, ON 2 L NC, LEFT IV 20 G, SL. RIGHT IJ TRIPLE LUMEN, FLUSHED PATENT, INFUSING NS AT 20ML/HR, KUHN CATH IN PLACE, DRAINING LIGHT CHANTAL URINE, SCROTAL DRESSING IN PLACE, INTACT AND DRY. FALL AND ASPIRATION PRECAUTION IN PLACE. BED IN LOWEST POSITION. CALL LIGHT WITHIN REACH.
--- NOTE | 2018-08-08 07:32 | NUR ---
ENDORSED PATIENT TO DAY SHIFT NURSE, PATIENT STABLE.
[2018-08-08 08:00] VITALS: BP 99/48
--- NOTE | 2018-08-08 08:30 | NUR ---
PT WAS FED BY ROAD BUILDER. GOOD INTAKE.
--- NOTE | 2018-08-08 08:59 | NUR ---
RECEIVED ORDER FOR HOME HEALTH FOR WOUND CARE. CALLED [facility] AND WAS TOLD BY NAZANIN THAT [facility] DOES THE HOME HEALTH AND TO FAX THE INFORMATION TO [facility] AT [phone]. FAXED FACE SHEET, ORDER, ETC TO THEM.
[2018-08-08] MEDS: LACTULOSE 20 GM/30 ML UDC PO SCH (09:07)
[2018-08-08] MEDS: FERROUS SULFATE 300 MG/5 ML UDC PO SCH (09:07)
[2018-08-08] MEDS: PANTOPRAZOLE 40 MG INJ VIAL IVP SCH (09:07)
[2018-08-08] MEDS: ASCORBIC ACID 500 MG/5 ML ORASYR PO SCH (09:09)
[2018-08-08] MEDS: FINASTERIDE 5 MG TAB PO SCH (09:21)
[2018-08-08] MEDS: CARBIDOPA/LEVODOPA 25/100 MG 1 TAB PO SCH ×3 (09:21→17:35)
[2018-08-08] MEDS: POLYETHYLENE GLYCOL 17 GM/PKT PO SCH ×2 (09:21→20:42)
[2018-08-08] MEDS: GABAPENTIN 300 MG CAP PO SCH ×3 (09:22→17:35)
[2018-08-08] MEDS: LACTOBACILLUS RHAMNOSUS GG 1 EACH CAP PO SCH (09:22)
[2018-08-08] MEDS: TAMSULOSIN 0.4 MG CAP PO SCH (09:22)
[2018-08-08] MEDS: SKINTEGRITY HYDROGEL TP SCH ×2 (09:23)
--- NOTE | 2018-08-08 09:30 | NUR ---
MED WAS CRUSHED AND MIX WITH APPLE SAUCE, PT TOLERATED WELL.
[2018-08-08] MEDS ORDERED: POTASSIUM CHLORIDE 40 MEQ, LIDOCAINE MPF 1% - 5 mL VIAL 25 MG in NACL 0.9% 250 ML IV SCH (10:00)
--- NOTE | 2018-08-08 10:44 | NUR ---
I CALLED [facility] AND SPOKE WITH DAVID IN . HE ASKED ME TO FAX THE INFORMATION TO AT [phone]., WHICH I DID.
--- NOTE | 2018-08-08 11:20 | NUR ---
CHANGED SCROTUM DRESSING, CLEANSED WITH WOUND RINSE SOLUTION, PATTED DRY, APPLIED HYDROGEL AND ADAPTIC DRESSING COVERED WITH GAUZE AND ISLAND DRESSING. CHANGED SACRAL DRESSING, APPLIED HYDROGEL AND Z GUARD, COVERED WITH FOAM DRESSING. PT TOLERATED WELL.
--- NOTE | 2018-08-08 11:57 | NUR ---
RECEIVED INFORMATION FROM STEPHANIE THAT THE HOME HEALTH WILL BE BY [facility]. I CALLED [facility] [phone] AND SPOKE WITH MAGDA. SHE SAID THAT THIS PATIENT HAS DUAL CHOICE AND I WOULD HAVE TO SPEAD WITH EITHER [place], X [phone] [place] X [phone]. I CALLED EMILY AND SHE SAID TO SEND INFORMATION ON WHICH HOME HEALTH WILL TAKE THE PATIENT, THE FACE SHEET AND THE ORDER TO HER FAX, . [facility]ED [facility], THEY SAID THEY DO NOT HAVE A CONTRACT WITH [facility].\ CALLED [facility] AND FAXED INFORMATION TO [phone] PHONE [phone]
[2018-08-08 12:00] VITALS: BP 99/55
--- NOTE | 2018-08-08 12:38 | NUR ---
CALLED [facility] AND SPOKE WITH SHITAL. SHE SAID THEY ARE NOT TAKING [facility] PATIENT. RECEIVED A CALL FROM [facility] FROM [facility]. THEY HAVE ACCEPTED THE PATIENT. PHON [phone]. I FAXED THE ORDER AND FACE SHEET TO [facility] DUNDEE IN PATIENT DEPT AT [phone]. WROTE ON FAX COVER SHEET THAT [facility] HAS ACCEPTED THE PATIENT.
[2018-08-08] MEDS: COMPOSITE DRESSING TP SCH (13:47)
[2018-08-08 16:00] VITALS: BP 100/50
--- NOTE | 2018-08-08 16:05 | NUR ---
VITALS TAKEN, PT ON 2L NC. N S/S OF ACUTE DISTRESS.
--- NOTE | 2018-08-08 19:30 | NUR ---
ENDORSED PT TO HYPERION ANALYST, PT IN STABLE CONDITION. ENDORSED HYPERION ANALYST TO CHANGE CENTRAL LINE DRESSING DUE DAY TODAY.
--- NOTE | 2018-08-08 19:31 | NUR ---
RECEIVED REPORT FROM BERNARD VARGAS FOR CONTINUITY OF CARE. PT A/OX1 ON ROOM AIR. PT IS ABLE TO MAKE NEEDS KNOWN, ABLE TO FOLLOW COMMANDS. PT ON BEDREST, SKIN IS NON-INTACT, SEE WOUND ASSESSMENT. PT HAS A RIGHT IJ CENTRAL LINE, ASYMPTOMATIC AND INTACT. BLOOD PRESSURE IS 87/54, BUT MAP IS 65. OTHER VITAL SIGNS WITHIN NORMAL LIMITS. PT STABLE, DENIES HAVING ANY PAIN, NO SIGNS OF DISTRESS NOTED AT THIS TIME. PT POSITIONED FOR COMFORT. BED IN LOWEST POSITION, BED ALARM ON. WILL CONTINUE TO MONITOR.
[2018-08-08 20:00] VITALS: BP 87/56
--- NOTE | 2018-08-08 20:45 | NUR ---
ADMINISTERED SCHEDULED MEDICATIONS, PT TOLERATED WELL.
--- NOTE | 2018-08-08 22:47 | NUR ---
PT ASKED FOR WATER, USED THICKENER TO THICKEN WATER AND GAVE PT SOME. PT TOLERATED WELL, DRANK SLOWLY BUT WITHOUT ANY PROBLEMS.
[2018-08-09] VITALS: BP 98/48
--- NOTE | 2018-08-09 | NUR ---
VITAL SIGNS WITHIN NORMAL LIMITS. PT STABLE, DENIES HAVING ANY PAIN, NO SIGNS OF DISTRESS NOTED AT THIS TIME. PT POSITIONED FOR COMFORT. BED IN LOWEST POSITION, BED ALARM ON. WILL CONTINUE TO MONITOR.
[2018-08-09] MEDS: HYDRAGUARD CREAM TP SCH ×2 (00:47→13:04)
[2018-08-09] MEDS: Z-GUARD PASTE TP SCH ×2 (00:47→13:04)
[2018-08-09 04:00] VITALS: BP 94/48
[2018-08-09] MEDS: PIPER/TAZO 3.375GM/D5W PREMIX 50 ML IV SCH ×2 (05:18→12:34)
[2018-08-09 06:07] LABS: BASOPHILS % (AUTO) 0.4 % (0.0-2.0); EOSINOPHILS # (AUTO) 0.1 K/uL (0-0.4); EOSINOPHILS % (AUTO) 2.2 % (0.0-4.0); HEMATOCRIT 22.9 % (36-52); HEMOGLOBIN 7.4 g/dL (12.0-18.0); LYMPHOCYTES # (AUTO) 0.8 K/uL (2.0-11.5); LYMPHOCYTES % (AUTO) 24.6 % (20.5-51.1); MEAN CORPUSCULAR HEMOGLOBIN 26 pg (27-31); MEAN CORPUSCULAR HGB CONC 32 g/dL (33-37); MEAN CORPUSCULAR VOLUME 82.1 fL (80-94); MONOCYTES # (AUTO) 0.5 K/uL (0.8-1.0); MONOCYTES % (AUTO) 14.9 % (1.7-9.3); NEUTROPHILS # (AUTO) 1.8 K/uL (1.8-7.7); NEUTROPHILS % (AUTO) 57.9 % (42.2-75.2); PLATELET COUNT (AUTO) 137 K/uL (140-450); RED BLOOD CELL COUNT(AUTO) 2.79 MIL/uL (4.20-6.10); RED CELL DISTRIBUTION WIDTH 17.1 % (11.6-13.7); WHITE BLOOD COUNT (AUTO) 3.2 K/uL (4.8-10.8)
[2018-08-09] MEDS: ALBUTEROL SULFATE/IPRATROPIU 3 ML SOL IH SCH ×2 (06:17→12:58)
[2018-08-09 06:35] LABS: ANION GAP 6.8 (8-16); CARBON DIOXIDE 29.9 mmol/L (21-32); CHLORIDE 107 mmol/L (98-107); CREATININE 0.9 mg/dL (0.7-1.3); GLUCOSE 88 mg/dL (74-106); POTASSIUM 3.7 mmol/L (3.5-5.1); SODIUM SERUM 140 mmol/L (136-145); UREA NITROGEN, BLOOD 12 mg/dL (7-18)
--- NOTE | 2018-08-09 07:51 | NUR ---
ENDORSED PT TO DAY SHIFT RN MASTER FOR CONTINUITY OF CARE. PT IN STABLE CONDITION.
--- NOTE | 2018-08-09 07:53 | NUR ---
RECEIVED BEDSIDE REPORT FROM EPIC ANALYST RN FOR CONTINUITY OF CARE. PATIENT RESTING COMFORTABLY IN BED, EYES OPENING TO VOICE. FLACC 0. KUHN CATH IN PLACE, DRAINING YELLOW URINE. PER EPIC ANALYST, PT IS BEDBOUND. LT FOREHEAD SKIN TEAR, LT BUTTOCK PRESSURE ULCER, AND SCROTAL WOUND S/P I&D. DRESSINGS C/D/I. RT IJ PATENT AND ASYMPTOMATIC, INFUSING IVF PER MD ORDERS. RT IJ DRESSING C/D/I. LUNG SOUNDS CTA. ALL SAFETY PRECAUTIONS IN PLACE, WILL CONTINUE TO MONITOR.
[2018-08-09 08:00] VITALS: BP 110/55
[2018-08-09] MEDS: POLYETHYLENE GLYCOL 17 GM/PKT PO SCH (08:43)
[2018-08-09] MEDS: PANTOPRAZOLE 40 MG INJ VIAL IVP SCH (08:44)
[2018-08-09] MEDS: LACTULOSE 20 GM/30 ML UDC PO SCH (08:44)
[2018-08-09] MEDS: CARBIDOPA/LEVODOPA 25/100 MG 1 TAB PO SCH ×2 (08:44→12:34)
[2018-08-09] MEDS: ASCORBIC ACID 500 MG/5 ML ORASYR PO SCH (08:44)
[2018-08-09] MEDS: FERROUS SULFATE 300 MG/5 ML UDC PO SCH (08:44)
[2018-08-09] MEDS: FINASTERIDE 5 MG TAB PO SCH (08:45)
[2018-08-09] MEDS: GABAPENTIN 300 MG CAP PO SCH ×2 (08:45→12:34)
[2018-08-09] MEDS: LACTOBACILLUS RHAMNOSUS GG 1 EACH CAP PO SCH (08:45)
[2018-08-09] MEDS: TAMSULOSIN 0.4 MG CAP PO SCH (08:45)
[2018-08-09] MEDS: SKINTEGRITY HYDROGEL TP SCH ×2 (08:46)
--- NOTE | 2018-08-09 10:36 | NUR ---
PT RESTING COMFORTABLY IN BED, RECEIVING BED BATH NOW. NO S/S DISTRESS. ALL SAFETY PRECAUTIONS IN PLACE, WILL CONTINUE TO MONITOR.
[2018-08-09] MEDS: NACL 0.9% 1,000 ML IV SCH (11:33)
[2018-08-09 12:00] VITALS: BP 97/48
[2018-08-09] MEDS ORDERED: ASCO-672 PO (12:12)
[2018-08-09] MEDS ORDERED: TAMS0.4C96 PO (12:12)
[2018-08-09] MEDS ORDERED: LACT10SO11 PO (12:12)
[2018-08-09] MEDS ORDERED: CARB1TAB17 PO (12:12)
[2018-08-09] MEDS ORDERED: TRAZ-466 PO (12:12)
[2018-08-09] MEDS ORDERED: FER300L PO (12:12)
[2018-08-09] MEDS ORDERED: LEVO750T2 PO (12:12)
[2018-08-09] MEDS ORDERED: FINA5TAB5 PO (12:12)
[2018-08-09] MEDS ORDERED: CLIN300C2 PO (12:12)
[2018-08-09] MEDS ORDERED: GABA-638 PO (12:12)
[2018-08-09] MEDS ORDERED: LACT10CA PO (12:12)
--- NOTE | 2018-08-09 12:20 | NUR ---
PER DR. VALERA, LEAVE KUHN CATHETER IN FOR D/C HOME. WILL CHANGE TO LEG KUHN BAG.
--- NOTE | 2018-08-09 12:46 | NUR ---
CALLED SON AND OBTAINED PHARMACY INFORMATION. WILL GIVE TO DR. VALERA.
[2018-08-09] MEDS: COMPOSITE DRESSING TP SCH (13:03)
--- NOTE | 2018-08-09 13:04 | NUR ---
SON GLENDA ASKING ABOUT WOUND CARE MATTRESS FOR HOME. STATES THAT HE ASKED STAFF REGARDING MATTRESS EARLIER. ASKED [facility] REGARDING WOUND CARE MATTRESS FOR HOME. [facility] TO F/U AND CALL ME BACK.
--- NOTE | 2018-08-09 14:51 | NUR ---
SHAZIA GLENDA STATES HE WILL BE HERE IN 1-1.5 HOURS TO ROUGH PLANER TENDER PATIENT. Addendum: 08/09/18 at 1525 by Meagan Hull Meng, RN PER SHAZIA, FLU VACCINE AND PNEUMOVAX ARE UP TO DATE.
--- NOTE | 2018-08-09 15:24 | NUR ---
CALLED [facility]. SHE IS AWARE OF ORDER FOR HOME HEALTH WOUND CARE.
--- NOTE | 2018-08-09 15:33 | NUR ---
Called [facility] and spoke with Jeane . Informed Jeane pt is discharged today. Informed Meagan WAGNER [facility] will see the pt tomorrow between [phone]. Meagan WAGNER will informed pt and family.
--- NOTE | 2018-08-09 16:20 | NUR ---
DISCHARGE PAPERWORK, INCLUDING INSTRUCTIONS FOR HOME HEALTH WOUND CARE AND PCP APPOINTMENT, GIVEN TO PATIENT. PATIENT IS AOX1. SON AT BEDSIDE TO RECEIVE D/C TEACHING. NEW RX AND MED RECON TEACHING GIVEN. RX FAXED TO PATIENT'S PHARMACY. SON INFORMED THAT HOME HEALTH WILL BE VISITING FOR WOUND CARE TOMORROW MORNING B/W 9AM-12PM. WOUND CARE SUPPLIES X1 AND HYDROGEL, HYDRAGUARD, ZGUARD GIVEN TO PATIENT. KUHN CATH LEFT IN PLACE PER MD ORDERS. TOLD SON TO F/U WITH PCP REGARDING WHEN TO D/C KUHN. KUHN CATH CARE AND USE TEACHING GIVEN. RT IJ REMOVED WITH MINIMAL BLOOD LOSS AND LUMEN COMPLETELY INTACT. ID BANDS REMOVED. PHOTOS TAKEN OF WOUNDS- IN CHART. ALL PERSONAL BELONGINGS WITH PATIENT. PT IN STABLE CONDITION. DISCHARGED VIA WHEELCHAIR- TO GO HOME WITH SON.
== END 2018-08-09 16:20 | disposition home health service (06) | DRG 717 ==
LOC: MED 08:15 → MTU 12:26 → MIC 08-01 15:59 → MTU 08-02 17:30
PROVIDERS: ADMIT General Practice; ATTEND General Practice
PROC: 0V950ZZ Drainage of Scrotum, Open Approach (ICD-10-PCS; principal; 2018-08-01)
PROC: 02HV33Z Insertion of Infusion Device into Superior Vena Cava, Percutaneous Approach (ICD-10-PCS; 2018-08-01)
PROC: B548ZZA Ultrasonography of Superior Vena Cava, Guidance (ICD-10-PCS; 2018-08-01)
PROC: 30233N1 Transfusion of Nonautologous Red Blood Cells into Peripheral Vein, Percutaneous Approach (ICD-10-PCS; 2018-08-05)
DX: N49.2 Inflammatory disorders of scrotum (principal); A41.9 Sepsis, unspecified organism; E43 Unspecified severe protein-calorie malnutrition; L89.153 Pressure ulcer of sacral region, stage 3; N17.0 Acute kidney failure with tubular necrosis; J96.91 Respiratory failure, unspecified with hypoxia; J69.0 Pneumonitis due to inhalation of food and vomit; E87.1 Hypo-osmolality and hyponatremia; Z68.1 Body mass index [BMI] 19.9 or less, adult; N39.0 Urinary tract infection, site not specified; K92.2 Gastrointestinal hemorrhage, unspecified; I11.9 Hypertensive heart disease without heart failure; G20 Parkinson's disease; E87.6 Hypokalemia; E83.51 Hypocalcemia; B95.61 Methicillin susceptible Staphylococcus aureus infection as the cause of diseases classified elsewhere; F02.80 Dementia in other diseases classified elsewhere, unspecified severity, without behavioral disturbance, psychotic disturbance, mood disturbance, and anxiety; D50.0 Iron deficiency anemia secondary to blood loss (chronic); I70.0 Atherosclerosis of aorta; R33.9 Retention of urine, unspecified; N28.1 Cyst of kidney, acquired; I34.0 Nonrheumatic mitral (valve) insufficiency; N45.3 Epididymo-orchitis; I27.21 Secondary pulmonary arterial hypertension; G47.00 Insomnia, unspecified; G62.9 Polyneuropathy, unspecified; K76.0 Fatty (change of) liver, not elsewhere classified; D63.8 Anemia in other chronic diseases classified elsewhere; E86.0 Dehydration; K56.41 Fecal impaction; L57.0 Actinic keratosis; N50.89 Other specified disorders of the male genital organs; D64.9 Anemia, unspecified; Y95 Nosocomial condition; K21.9 Gastro-esophageal reflux disease without esophagitis; Z90.79 Acquired absence of other genital organ(s); Z74.01 Bed confinement status; Z79.899 Other long term (current) drug therapy; Z91.14 Patient's other noncompliance with medication regimen
CPT/HCPCS: 36415; 36600; 71045; 74018; 76870; 80048; 80053; 80202; 81001; 82150; 82272; 82607; 82728; 82746; 82803; 82948; 83036; 83540; 83605; 83690; 83735; 83880; 84100; 84134; 84439; 84443; 84484; 85025; 85045; 85610; 85730; 86886; 86900; 86901; 86920; 87040; 87070; 87075; 87081; 87086; 87186; 87205; 89220; 92610; 93005; 94640; 96361; 96365; 99285; A6248; C1758; C9113; J0696; J1450; J1642; J1885; J1940; J2001; J2270; J2543; J2916; J3370; J3480; J3490; J7030; J7060; J7620; P9016; Q0092; Q9967

== ENCOUNTER 2021-12-29 22:48 | Observation (INO) | payer MEDICARE, OTHER ==
[~2021-12-29] VITALS: Ht 177.8 cm; Wt 62.1 kg
[~2021-12-29 22:48] MED LIST changes: +ASCO-672 PO; +CARB1TAB17 PO; -CARB1TAB8 PO; -CIPR500T9 PO; +CLIN300C2 PO; +FER300L PO; +GABA-638 PO; +LACT10CA PO; +LACT10SO11 PO; +LEVO750T2 PO; +TAMS0.4C96 PO; +TRAZ-466 PO
[2021-12-29 22:49] VITALS: BP 117/57
--- NOTE | 2021-12-29 22:49 | NUR ---
86 Y/O MALE BIBA FROM HOME C/O GEN WEAKNESS x2-3 WEEKS. BASELINE MENTATION A/O X2/3 BUT DECLINED IN THE PAST FEW WEEKS PER EMS. PT SEEN BY PCP AND FOUND PT TO HAVE LOW PLTS. +WOUNDS TO BACK. CANTONESE SPEAKING. 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 UNLABORED BREATHING; BED BOUND. MEDHX- [facility]
--- NOTE | 2021-12-29 22:49 | NUR ---
PT TREE BALLARDS. TAKEN TO BED 4
--- NOTE | 2021-12-29 23:15 | NUR ---
X-Ray at bedside.
--- NOTE | 2021-12-29 23:16 | NUR ---
XRAY AT BEDSIDE
--- NOTE | 2021-12-29 23:16 | NUR ---
LOKIE ENGINEER AT BEDSIDE
[2021-12-29 23:22] LABS: BASOPHILS # (AUTO) 0.1 K/uL (0.00-0.22); EOSINOPHILS # (AUTO) 0.1 K/uL (0-0.4); EOSINOPHILS % (AUTO) 1.4 % (0.0-4.0); HEMOGLOBIN 10.9 g/dL (12.0-18.0); LYMPHOCYTES # (AUTO) 1.4 K/uL (2.0-11.5); LYMPHOCYTES % (AUTO) 25.7 % (20.5-51.1); MEAN CORPUSCULAR HEMOGLOBIN 28 pg (27-31); MEAN CORPUSCULAR HGB CONC 33 g/dL (33-37); MEAN CORPUSCULAR VOLUME 83.4 fL (80-94); MONOCYTES % (AUTO) 36.5 % (1.7-9.3); NEUTROPHILS # (AUTO) 1.9 K/uL (1.8-7.7); NEUTROPHILS % (AUTO) 35.4 % (42.2-75.2); PLATELET COUNT (AUTO) 121 K/uL (140-450); RED BLOOD CELL COUNT(AUTO) 3.96 MIL/uL (4.20-6.10); RED CELL DISTRIBUTION WIDTH 15.8 % (11.6-13.7); WHITE BLOOD COUNT (AUTO) 5.5 K/uL (4.8-10.8)
[2021-12-29 23:42] LABS: ALBUMIN 3.5 g/dL (3.4-5.0); ANION GAP 10.6 (8-16); ASPARTATE AMINOTRANSFERASE 18 U/L (15-37); CHLORIDE 95 mmol/L (98-107); CREATININE 0.6 mg/dL (0.6-1.3); GLUCOSE 143 mg/dL (74-106); POTASSIUM 3.6 mmol/L (3.5-5.1); SODIUM SERUM 129 mmol/L (136-145); TOTAL BILIRUBIN 0.4 mg/dL (0.0-1.0); UREA NITROGEN, BLOOD 15 mg/dL (7-18)
--- NOTE | 2021-12-29 23:51 | NUR ---
Dr. Barragan examining patient.
--- NOTE | 2021-12-29 23:58 | NUR ---
covid/paco swab collected and walked to lab
[2021-12-30] MEDS ORDERED: NACL 0.9% 1,000 ML IV ONE
--- NOTE | 2021-12-30 01:33 | NUR ---
PATEINT RESTING IN BED. BED LOW AND LOCKED. ELOY SIDE RAIL UP FOR SAFETY. FAMILY AT BEDSIDE. ALL NEEDS MET.
[2021-12-30] MEDS ORDERED: cefTRIAXone 1,000 MG VIAL ONE (03:54)
[2021-12-30] MEDS ORDERED: MORPHINE SULFATE 4 MG/ML SYR IVP PRN (04:55)
[2021-12-30] MEDS ORDERED: ACETAMINOPHEN 325 MG TAB PO PRN (04:55)
[2021-12-30] MEDS ORDERED: ONDANSETRON 4 MG/2 ML VIAL IVP PRN (04:55)
[2021-12-30] MEDS ORDERED: HYDROcodone/APAP 5/325 MG 1 TAB TAB PO PRN (04:55)
[2021-12-30] MEDS ORDERED: POTASSIUM CHLORIDE 10 MEQ TABER PO PRN (04:55)
[2021-12-30] MEDS ORDERED: CETI10TA81 PO (05:11)
[2021-12-30] MEDS ORDERED: [UNRECOGNIZED DRUG - CODE] OP (05:11)
[2021-12-30] MEDS ORDERED: DOCU-299 PO (05:11)
[2021-12-30] MEDS: POTASSIUM CHL 40 MEQ/ D5-1/2NS 1,000 ML IV SCH ×2 (06:18→17:22)
[2021-12-30] MEDS: NACL 0.9% 1,000 ML IV SCH ×2 (06:19→17:25)
--- NOTE | 2021-12-30 07:21 | NUR ---
Report and continuation of care received from BERNARD Salmeron.
--- NOTE | 2021-12-30 07:21 | NUR ---
TRANSFER OF CARE REPORT TO BERNARD DE LA ROSA
--- NOTE | 2021-12-30 07:55 | NUR ---
Patient resting in semi-fowlers position with industrial paramedic in place. BP 104/61, HR 69 SpO2 99% on room air. IVF continued by infusion pump.
[2021-12-30] MEDS: ENOXAPARIN 40 MG/0.4 ML SYR SUBQ SCH (10:50)
--- NOTE | 2021-12-30 12:15 | NUR ---
Bedside report given to BERNARD Nix
--- NOTE | 2021-12-30 12:15 | NUR ---
Patient will be admitted to care of Dr. Oconnor. Admited to M/S. Will go to room 125A Belongings list completed. Report to BERNARD Nix.
--- NOTE | 2021-12-30 16:45 | NUR ---
PATIENT HAS BEEN SCREENED AND CATEGORIZED HIGH NUTRITION RISK. PATIENT WILL BE SEEN WITHIN 1-2 DAYS OF ADMISSION. /01/[address]
--- NOTE | 2021-12-30 17:03 | NUR ---
P.T NOTES P.T. EVAL COMPLETED; REFER TO EVAL FOR DETAILS.
[2021-12-31] MEDS ORDERED: cefTRIAXone 1,000 MG VIAL ONE (04:01)
[2021-12-31] MEDS: POTASSIUM CHL 40 MEQ/ D5-1/2NS 1,000 ML IV SCH ×2 (05:55→18:07)
[2021-12-31] MEDS: NACL 0.9% 1,000 ML IV SCH ×2 (05:55→18:07)
[2021-12-31 06:23] LABS: ALBUMIN 3.1 g/dL (3.4-5.0); ANION GAP 8.6 (8-16); ASPARTATE AMINOTRANSFERASE 17 U/L (15-37); CARBON DIOXIDE 25.9 mmol/L (21-32); CHLORIDE 102 mmol/L (98-107); CREATININE 0.5 mg/dL (0.6-1.3); GLUCOSE 112 mg/dL (74-106); POTASSIUM 4.5 mmol/L (3.5-5.1); SODIUM SERUM 132 mmol/L (136-145); TOTAL BILIRUBIN 0.4 mg/dL (0.0-1.0); UREA NITROGEN, BLOOD 12 mg/dL (7-18)
[2021-12-31 08:00] VITALS: BP 128/54
--- NOTE | 2021-12-31 08:00 | NUR ---
RECEIVED REPORT FROM VANE WAGNER. PT ASLEEP BUT AROUSABLE. RR EVEN & UNLABORED. NO SOB OR RESPIRATORY DISTRESS. RA. ON SOFT DIET. HOB ELEVATED. IVF INFUSING. NEEDS ALL MET AT THIS TIME. SAFETY MEASURES IN PLACE.
[2021-12-31] MEDS: ENOXAPARIN 40 MG/0.4 ML SYR SUBQ SCH ×2 (08:32→08:36)
--- NOTE | 2021-12-31 13:00 | NUR ---
PT ASLEEP BUT AROUSABLE. NO SOB OR RESPIRATORY DISTRESS. ON RA. RR EVEN & UNLABORED. IVF INFUSING. DENIES PAIN. NEEDS ALL MET AT THIS TIME. HOB ELEVATED. SAFETY MEASURES IN PLACE.
--- NOTE | 2021-12-31 14:00 | NUR ---
PT AWAKE AND ALERT. MUMBLES. HOB ELEVATED TO HIGH FOWLERS. PT ABLE TO FINISH 70% OF LUNCH. ABLE TO NOD YES OR NO WHEN ASKED IF PT WANTS MORE FOOD. NO SIGNS OF ASPIRATION. IVF INFUSING. NEEDS ALL MET AT THIS TIME. HOB SEMI-FOWLERS. SAFETY MEASURES IN PLACE. BED IN LOWEST POSITION, CALL LIGHT WITHIN REACH.
[2021-12-31 16:00] VITALS: BP 128/65
--- NOTE | 2021-12-31 16:29 | NUR ---
12/31/21 RD INITIAL ASSESSMENT COMPLETED PLEASE REFER TO NUTRITION ASSESSMENT UNDER CARE ACTIVITY FOR ESTIMATED NUTRITIONAL NEEDS. 1. CONTINUE CARDIAC PUREE DIET 2. MONITOR PO INTAKE 3. RECOMMEND ENSURE BID FOR NUTRITION SUPPORT 4. RD TO FOLLOW-UP 2-3 DAYS, HIGH RISK TAZ LIND, RD
--- NOTE | 2021-12-31 19:00 | NUR ---
PT'S FAMILY AT BEDSIDE ASSISTING WITH FEEDING. PT IN NO DISTRESS. HOB ELEVATED TO HIGH FOWLERS. NO SOB OR RESPIRATORY DISTRESS. ON RA. NEEDS ALL MET AT THIS TIME. IVF INFUSING. SAFETY MEASURES IN PLACE.
--- NOTE | 2021-12-31 19:27 | NUR ---
REPORT GIVEN TO MARTHA SANTOS FOR CONTINUITY OF CARE.
--- NOTE | 2021-12-31 19:28 | NUR ---
RECEIVED REPORT FROM MATT WAGNER. PATIENT WAS STABLE AT SHIFT REPORT. PATIENT BREATHING UNLABORED AND EVEN. NO NOTED COUGH, NO FACIAL GRIMACE FOR PAIN INDICATOR AND NO S/S OF RESPIRATORY DISTRESS. LUNGS WERE CLEAR ON INHALATION AND EXHALATION. SIDE RAILS UP X 3 FOR SAFETY. PATIENT ATTEMPTED TO SPEAK BUT INCOHERENT. BED NOTED A THE LOWEST LEVEL IN LOW HARPER POSITION TO PREVENT ASPIRATION AND COMFORT. PATIENT WOKE UP WHEN HE HEARD HIS NAME CALLED. BLINKED BRISKLY AND EYES WERE EQUAL REACTIVE TO LIGHT. CALL LIGHT BY HER HEAD FOR TV ENTERTAINMENT. PATIENT IS BEDBOUND SO NURSING WILL FREQUENT THE ROOM FOR ANTICIPATED NEEDS. [email or web address]
[2021-12-31 20:00] VITALS: BP 95/48
--- NOTE | 2021-12-31 20:00 | NUR ---
Patient's Plan of Care was discussed and reviewed with LEAD ARCHITECT: MARTHA CALLAHAN
--- NOTE | 2021-12-31 23:30 | NUR ---
PATIENT IN BED RESTING BUT AWAKE. NO NOTED FACIAL GRIMACING FOR PAIN/DISCOMFORT. PATIENT BREATHING EVENLY AND UNLABORED. IV INTACT AND PATENT. BED AT LOWEST LEVEL. NURSING WILL CONTINUE TO FREQUENT THE ROOM FOR ANTICIPATED NEEDS. [email or web address]
--- NOTE | 2022-01-01 00:07 | NUR ---
NURSING MADE ROUNDS AND PATIENT REMAINS CLEAN AND DRY. WHEN ASKED IF HE WAS IN PAIN PATIENT SHOOK HIS HEAD TO GESTURE NO. PATIENT ATTEMPTED TO SPEAK AGAIN BUT UNABLE TO UNDERSTAND. NURSING WILL FREQUESNT ROOM FOR ANTICIPATED NEEDS. SIDE RAILS UP X3 FOR SAFETY. BED ALARMS ON FALL RISK. HEAD OF BED ELEVATED FOR ASPIRATION PREVENTION. [email or web address]
--- NOTE | 2022-01-01 02:37 | NUR ---
CURRENTLY PATIENT IN BED ASLEEP WITH HEAD OF BED ELEVATED FOR COMFORT. NOTED CHEST RISING AND FALLING EVENLY WITHOUT DISTRESS. NO NOTED S/S OF PAIN/DISCOMFORT. SIDE RAILS UP X 4. NURSING WILL FREQUENT THE ROOM TO ENSURE NEEDS ARE ANTICIPATED AND MET. [email or web address]
--- NOTE | 2022-01-01 04:02 | NUR ---
DURING ROUNDS, NURSING NOTED PATIENT REMAINS IN BED ASLEEP. NO S/S IF PAIN/DISCOMFORT. NO NOTED RESPIRATORY ISSUES AT THIS TIME. SIDE RAILS UP X 4 FOR ADJUSTMENT AND COMFORT. NURSING FREQUENTS THE ROOM FOR ANTICIPATED NEEDS AND WANTS. [email or web address]
[2022-01-01 05:49] LABS: ALBUMIN 3.1 g/dL (3.4-5.0); ANION GAP 13.3 (8-16); ASPARTATE AMINOTRANSFERASE 18 U/L (15-37); CARBON DIOXIDE 23.5 mmol/L (21-32); CHLORIDE 101 mmol/L (98-107); CREATININE 0.6 mg/dL (0.6-1.3); GLUCOSE 96 mg/dL (74-106); POTASSIUM 3.8 mmol/L (3.5-5.1); SODIUM SERUM 134 mmol/L (136-145); TOTAL BILIRUBIN 0.4 mg/dL (0.0-1.0); UREA NITROGEN, BLOOD 14 mg/dL (7-18)
[2022-01-01] MEDS: POTASSIUM CHL 40 MEQ/ D5-1/2NS 1,000 ML IV SCH (06:55)
[2022-01-01] MEDS: NACL 0.9% 1,000 ML IV SCH (07:13)
--- NOTE | 2022-01-01 07:45 | NUR ---
ENDORSED PATIENT TO THE CARE OF [employer]. PATIENT WAS STABLE AT CHANGE OF SHIFT. [email or web address]
--- NOTE | 2022-01-01 07:46 | NUR ---
RECEIVED REPORT FROM BLANCHING MACHINE OPERATOR NURSE FOR CONTINUITY OF CARE. PT IS SLEEPING AT THIS TIME. RESPIRATIONS EVEN AND UNLABORED ON ROOM AIR. NO DISTRESS NOTED. IV SITE ON LEFT WRIST 22G, INFUSING NS AT 80ML/HR. PER ENDORSED BY BLANCHING MACHINE OPERATOR NURSE, NURSE PUT D5 1/2NS IN KCL ON HOLD. AWAITING FOR DR FUNES'S RESPONSE REGARDING IV FLUIDS. CALL LIGHT WITHIN REACH. SAFETY PRECAUTIONS IN PLACE. WILL CONTINUE TO MONITOR.
[2022-01-01 08:00] VITALS: BP 107/55
[2022-01-01] MEDS: ENOXAPARIN 40 MG/0.4 ML SYR SUBQ SCH (08:41)
--- NOTE | 2022-01-01 10:30 | NUR ---
WOUND CARE EVALUATION NOTE: WOUND ASSESSMENT DONE WITH PRIMARY NURSE WITH PHOTO OBTAINED ON THIS 86 Y/O PT ADMITTED WITH Generalized weakness. PAST MEDICAL HX INCLUDES Parkinson's disease. ALL ABOVE INFORMATION OBTAINED FROM ADMISSION H&P. PT. ADMITTED WITH LOW WILNER SCALE WITH MULTIPLE SKIN TEARS AND DRY SCABS TO TRUNK OF BODY AND EXTREMITIES. OVERALL SKIN THIN FRAGILE AND EASILY TO TORN. PLAN OF CARE DISCUSSED WITH PRIMARY NURSE. INTEGUMENTARY: -MULTIPLE SKIN TEARS TO LEFT LOWER LEG WITH LARGEST TO BELOW KNEE 4X3X0.1CM WOUND BEDS DARK PURPLE OPENED HEMATOMA SMALL AMOUNT BLEEDING, NO ODOR, ALEXANDRE-WOUND SKIN SCALY, THIN WITH BROWN SCALY SKIN, PAIN 0/10 -MULTIPLE SKIN TEARS TO POSTERIOR TRUNK OF BODY WITH LARGEST TO RIGHT UPPER LATERAL BACK 3X2X0.1CM WOUND BEDS PINK AND MOIST NO ODOR, ALEXANDRE-WOUND SKIN SCALY, THIN. PAIN 0/10 -BILATERAL HEELS BLANCHABLE WITH SKIN INTACT MUSHY RECOMMENDATIONS: -CLEANSE SKIN TEARS TO TRUNK OF BODY AND LEFT LOWER LEG WITH NS. APPLY ADAPTIC DRESSING AND COVER WITH DRY DRESSING QD AND PRN IF SOILING - APPLY SKIN PREP TO RIGHT AND LEFT HEELS BID AND VICE PRESIDENT MEDICAL AFFAIRS, OFFLOADING WITH HEEL RAISERS -APPLY FORM DRESSING TO SACRALCOCCYX DAILY AND PRN IF SOILING PREVENTION -POSITIONING: TURN AND REPOSITION PATIENT Q 2H OR SOONER USE PILLOWS TO KEEP BONY PROMINENCES FROM DIRECT CONTACT WITH SURFACES USE REPOSITIONING WEDGES TO PROVIDE 30-DEGREE ANGLE FOR SIDE LYING POSITIONS OFFLOADING OR FOAM DRESSING TO ALL TUBING TO PREVENT MEDICAL DEVICES RELATED PRESSURE INJURY -RE-EVALUATING AND MANAGING INCONTINENCE MONITOR SKIN CONDITION DURING POSITION CHANGE DO NOT MASSAGE REDNESS, BONY PROMINENCES FREQUENT ALEXANDRE-CARE AND PROVIDE BARRIER CREAMS PRN IF SOILING MOISTURE CONTROL BY OFFER BED HERNANDEZ/URINAL /ABSORBENT PAD TO WICK AND HOLD MOISTURE KEEP SKIN DRY AND PROTECT FROM FRICTION -MANAGE FRICTION/SHEAR/MOBILITY KEEP HOB AT THE LOWEST LEVEL OF ELEVATION NO MORE THAN 30 DEGREES UNLESS OTHERWISE CONTRAINDICATED USE LIFT SHEET OR TRANSFER DEVICE TO MOVE PATIENT AND PREVENT LATERAL SHEER. PROTECT HEELS, ELBOWS BONY PROMINENCES WITH SKIN BERRIES OR FOAM DRESSING IF EXPOSED TO FRICTION OFFLOAD BILATERAL HEELS BY PLACING PILLOWS UNDER CALVES AT ALL TIMES, UNLESS OTHERWISE CONTRAINDICATED -PRESSURE REDISTRIBUTION SURFACE THERAPY JENNI ISOFLEX MATTRESS -NUTRITION: PLEASE FOLLOW RD RECOMMENDATIONS AND OFFER NUTRITION SUPPLEMENTS IF ORDERED.
--- NOTE | 2022-01-01 10:32 | NUR ---
ASSISTED WOUND CARE NURSE IN CHANGING WOUND DRESSING. NOTED LEFT LEG OPEN WOUND AND MID BACK SKIN TEAR AND BRUISING. PT ALSO HAS SOME BRUISING ON BOTH UPPER EXTREMITIES. BOTH UPPER EXT CONTRACTED.
--- NOTE | 2022-01-01 11:49 | NUR ---
DC PLANNING: CM SPOKE WITH PATIENT'S SON GLENDA MOREL EXPLAINED THAT PATIENT NEEDS A SNF VS HOME HEALTH, PER SON REFUSED SNF AND PREFERRED HOME HEALTH. [facility] ACCEPTED PATIENT PHONE NUMBER [phone]. NOTIFIED AWAIS WAGNER. Addendum: 01/01/22 at 1630 by Martina Bella RN DC PLANNING: PER SON REQUEST TO ARRANGE TRANSPORT WITH [facility]. ARRANGED TRANSPORT WITH [facility] THE QUOTE IS $180. SON AGREED TO PAY. BRIDGE TENDER TIME 6:30 PM. PHONE NUMBER FOR [facility] [phone]. NOTIFIED WAYNE CUMMINS RN.
[2022-01-01] MEDS ORDERED: CEPH-588 PO (12:34)
--- NOTE | 2022-01-01 13:56 | NUR ---
DID ROUNDS. PT SITTING COMFORTABLY IN BED. AWAKE, BREATHING EVEN AND UNLABORED. NO DISTRESS NOTED. NO SIGNS OF PAIN. NO BLEEDING NOTED. CALL LIGHT WITHIN REACH. SAFETY PRECAUTIONS IN PLACE. WILL CONTINUE TO MONITOR.
[2022-01-01 14:23] VITALS: BP 107/55
[2022-01-01 16:00] VITALS: BP 112/52
--- NOTE | 2022-01-01 16:35 | NUR ---
CHANGED PT DIAPER WITH BOSS MINER. PT TOLERATED WELL. NO DISTRESS NOTED. LEFT PT COMFORTABLY SITTING IN BED. CALL LIGHT WITHIN REACH. SAFETY PRECAUTIONS IN PLACE. WILL CONTINUE TO MONITOR.
[2022-01-01 17:23] VITALS: BP 112/52
--- NOTE | 2022-01-01 18:08 | NUR ---
PT FOR DC HOME WITH [facility] FOR GENERAL CARE. CLEAN PT, CHANGED DIAPER WITH WATER SAFETY TEACHER. NO DISTRESS NOTED. SAFETY PRECAUTIONS IN PLACE.
--- NOTE | 2022-01-01 19:30 | NUR ---
DC PT HOME. TRANSPORT STAFF PICKED UP PT VIA GURNEY. REMOVED IV CATHETER INTACT. ID WRIST BAND REMOVED. ALL BELONGINGS TAKEN UPON DC. PT IS STABLE.
== END 2022-01-01 19:30 | disposition home or self-care (01) ==
LOC: MED 22:48 → MMU 12-30 04:57
PROVIDERS: ADMIT Student in an Organized Health Care Education/Training Program; ATTEND Student in an Organized Health Care Education/Training Program
DX: N39.0 Urinary tract infection, site not specified (principal); Z20.822 Contact with and (suspected) exposure to COVID-19; G93.41 Metabolic encephalopathy; G20 Parkinson's disease; E87.1 Hypo-osmolality and hyponatremia; E87.6 Hypokalemia; Z79.899 Other long term (current) drug therapy
CPT/HCPCS: 36415; 71045; 80053; 84484; 85025; 87426; 93005; 96361; 96365; 96366; 96368; 96372; 97162; 99285; G0378; J0696; J1650; J7060; Q0092; 96367